=== PATIENT | male | born 1960 | race African-American/Black ===

== ENCOUNTER 2019-01-10 15:54 | Inpatient (IN) | payer OTHER ==
[~2019-01-10] VITALS: Ht 182.9 cm; Wt 95.3 kg
[2019-01-10] MEDS ORDERED: IV NORMAL SALINE 500ML BAG 500 ML IV ONE (16:30)
[2019-01-10 16:33] LABS: BASO % 0 % (0-3); EOS % 0 % (0-3); HEMATOCRIT 46.7 % (39.0-53.0); HEMOGLOBIN 15.8 g/dL (13.0-17.5); LYMPH # 0.3 x10^3/uL (1.0-4.8); LYMPH % 3 % (24-48); MEAN CORPUSCULAR HEMOGLOBIN 29 pg (25-35); MEAN CORPUSCULAR HGB CONC 34 g/dL (31-37); MEAN CORPUSCULAR VOLUME 85 fL (79-100); MONO # 0.2 x10^3/uL (0.0-1.1); MONO % 1 % (0-9); NEUT # 12.9 x10^3/uL (1.8-7.7); NEUT % 96 % (31-73); PLATELET COUNT 126 x10^3/uL (140-400); RED BLOOD COUNT 5.49 x10^6/uL (4.30-5.70); RED CELL DISTRIBUTION WIDTH 13.6 % (11.5-14.5); WHITE BLOOD COUNT 13.5 x10^3/uL (4.0-11.0)
--- NOTE | 2019-01-10 16:46 | RAD ---
EXAM: Chest, single view. HISTORY: Hypotension. COMPARISON: None. FINDINGS: A frontal view of the chest is obtained. There is no infiltrate, pleural effusion or pneumothorax. There is a prominent cardiac silhouette likely due to portable technique. IMPRESSION: No acute pulmonary finding. Electronically signed by: Inga Connors MD (01/10/2019 4:43 PM) [facility]
[2019-01-10 16:51] LABS: CALCIUM 9.1 mg/dL (8.5-10.1); CREATININE 2.3 mg/dL (0.7-1.3); GFR 35.4; POTASSIUM 4.3 mmol/L (3.5-5.1)
[2019-01-10 16:56] LABS: ALBUMIN 3.6 g/dL (3.4-5.0); TOTAL BILIRUBIN 2.3 mg/dL (0.2-1.0); TOTAL PROTEIN 7.1 g/dL (6.4-8.2)
[2019-01-10 16:58] LABS: % BANDS 39 % (0-9); % LYMPHS 2 % (24-48); % MONOS 2 % (0-10); % SEGS 57 % (35-66)
[2019-01-10 17:00] LABS: PLT ESTIMATE DECREASED (ADEQUATE); TOXIC GRANULATION SLIGHT; TOXIC VACUOLATION MOD
[2019-01-10] MEDS ORDERED: fentaNYL PF VIAL 100 MCG/2 ML VIAL IV ONE (17:00)
[2019-01-10] MEDS ORDERED: ONDANSETRON PF 4 MG/2 ML VIAL. IVP ONE (17:00)
--- NOTE | 2019-01-10 17:16 | PHYS DOC ---
Past Medical History Past Medical History: Diabetes-Type II (RACHELLE RODRIGUEZ APRN) Past Surgical History: Cholecystectomy Additional Past Surgical Histo: liver transplant, hernia (RACHELLE RODRIGUEZ APRN) Adult General Chief Complaint Chief Complaint: ABDOMINAL PAIN HPI HPI Patient is a 58 year old male who presents with multiple complaints. Here from [place], working, going home tomorrow Last night developed hyperglycemia, hx of DM II and liver transplant. states blood glucose in the night was 400. Chills and shaking, diffuse back upper back pain and central abdominal pain. Nausea, no vomiting, no diarrhea Arrived via EMS, BG 154. He is resting in no distress (RACHELLE RODRIGUEZ APRN) Review of Systems Review of Systems Constitutional: Denies fever . C/o chills [] Eyes: Denies change in visual acuity, redness, or eye pain [] HENT: Denies nasal congestion or sore throat [] Respiratory: Denies cough or shortness of breath [] Cardiovascular: No additional information not addressed in HPI [] GI: Denies vomiting, bloody stools or diarrhea []c/o central dull abdominal pain : Denies dysuria or hematuria [] Musculoskeletal: Denies joint pain []c/o back pain Integument: Denies rash or skin lesions [] Neurologic: Denies headache, focal weakness or sensory changes [] Endocrine: Denies polyuria or polydipsia [] All other systems were reviewed and found to be within normal limits, except as documented in this note. (RACHELLE RODRIGUEZ APRN) Current Medications Current Medications Current Medications Medications (Trade) Dose Ordered Sig/Sathish Start Time Stop Time Status Last Admin Dose Admin Acetaminophen (Tylenol) 1,000 mg 1X ONCE 01/10/19 18:15 01/10/19 18:19 DC 01/10/19 18:35 1,000 MG Fentanyl Citrate (Fentanyl 2ml Vial) 50 mcg PRN Q1HR PRN 01/10/19 19:45 01/11/19 19:44 Ondansetron HCl (Zofran) 4 mg PRN Q8HRS PRN 01/10/19 19:45 01/11/19 19:44 Piperacillin Sod/ Tazobactam Sod 4.5 gm/Sodium Chloride 100 ml @ 200 mls/hr 1X ONCE 01/10/19 18:15 01/10/19 18:44 DC 01/10/19 18:39 200 MLS/HR Sodium Chloride 1,000 ml @ 1,000 mls/hr 1X ONCE 01/10/19 18:30 01/10/19 19:29 DC 01/10/19 18:39 1,000 MLS/HR Vancomycin HCl (Vanco Per Pharmacy) 1 each PRN DAILY PRN 01/10/19 18:15 UNV Vancomycin HCl 1.5 gm/Sodium Chloride 500 ml @ 250 mls/hr 1X ONCE 01/10/19 18:30 01/10/19 20:29 01/10/19 18:43 250 MLS/HR (FLAKITO OLIVO MD) Allergies Allergies Allergies Coded Allergies Type Severity Reaction Last Updated Verified Sulfa (Sulfonamide Antibiotics) Allergy Intermediate hives 01/10/19 Yes (FLAKITO OLIVO MD) Physical Exam Physical Exam Constitutional: Well developed, well nourished, no acute distress, non-toxic appearance. [] HENT: Normocephalic, atraumatic, bilateral external ears normal, oropharynx moist, no oral exudates, nose normal. [] Eyes: PERRLA, EOMI, conjunctiva normal, no discharge. [] Neck: Normal range of motion, no tenderness, supple, no stridor. [] Cardiovascular:Heart rate regular rhythm, no murmur [] Lungs & Thorax: Bilateral breath sounds clear to auscultation [] Abdomen: Bowel sounds normal, soft, c/o diffuse TTP, no guarding or rebound, no masses, no pulsatile masses. [] Skin: Warm, dry, no erythema, no rash. [] Back: No tenderness, no CVA tenderness. [] Extremities: No tenderness, no cyanosis, no clubbing, ROM intact, no edema. [] Neurologic: Alert and oriented X 3, normal motor function, normal sensory function, no focal deficits noted. [] Psychologic: Affect normal, judgement normal, mood normal. [] (RACHELLE RODRIGUEZ APRN) Current Patient Data Vital Signs Vital Signs Date Time Temp Pulse Resp B/P (MAP) Pulse Ox O2 Delivery O2 Flow Rate FiO2 01/10/19 18:33 100 95/72 (80) 01/10/19 18:30 102.7 102.7 01/10/19 17:21 30 95 Room Air (FLAKITO OLIVO MD) Lab Values Laboratory Tests Test 01/10/19 16:05 01/10/19 18:35 White Blood Count 13.5 x10^3/uL (4.0-11.0) H Red Blood Count 5.49 x10^6/uL (4.30-5.70) Hemoglobin 15.8 g/dL (13.0-17.5) Hematocrit 46.7 % (39.0-53.0) Mean Corpuscular Volume 85 fL (79-100) Mean Corpuscular Hemoglobin 29 pg (25-35) Mean Corpuscular Hemoglobin Concent 34 g/dL (31-37) Red Cell Distribution Width 13.6 % (11.5-14.5) Platelet Count 126 x10^3/uL (140-400) L Neutrophils (%) (Auto) 96 % (31-73) H Lymphocytes (%) (Auto) 3 % (24-48) L Monocytes (%) (Auto) 1 % (0-9) Eosinophils (%) (Auto) 0 % (0-3) Basophils (%) (Auto) 0 % (0-3) Neutrophils # (Auto) 12.9 x10^3/uL (1.8-7.7) H Lymphocytes # (Auto) 0.3 x10^3/uL (1.0-4.8) L Monocytes # (Auto) 0.2 x10^3/uL (0.0-1.1) Eosinophils # (Auto) 0.0 x10^3/uL (0.0-0.7) Basophils # (Auto) 0.0 x10^3/uL (0.0-0.2) Segmented Neutrophils % 57 % (35-66) Band Neutrophils % 39 % (0-9) H Lymphocytes % 2 % (24-48) L Monocytes % 2 % (0-10) Toxic Granulation Slight Toxic Vacuolation Mod Platelet Estimate Decreased (ADEQUATE) Sodium Level 136 mmol/L (136-145) Potassium Level 4.3 mmol/L (3.5-5.1) Chloride Level 96 mmol/L (98-107) L Carbon Dioxide Level 31 mmol/L (21-32) Anion Gap 9 (6-14) Blood Urea Nitrogen 20 mg/dL (8-26) Creatinine 2.3 mg/dL (0.7-1.3) H Estimated GFR (Cockcroft-Gault) 35.4 BUN/Creatinine Ratio 9 (6-20) Glucose Level 229 mg/dL (70-99) H Lactic Acid Level 3.0 mmol/L (0.4-2.0) H Calcium Level 9.1 mg/dL (8.5-10.1) Total Bilirubin 2.3 mg/dL (0.2-1.0) H Aspartate Amino Transferase (AST) 103 U/L (15-37) H Alanine Aminotransferase (ALT) 114 U/L (16-63) H Alkaline Phosphatase 89 U/L (46-116) Troponin I Quantitative < 0.017 ng/mL (0.000-0.055) Total Protein 7.1 g/dL (6.4-8.2) Albumin 3.6 g/dL (3.4-5.0) Albumin/Globulin Ratio 1.0 (1.0-1.7) Lipase 32 U/L (73-393) L Urine Collection Type Unknown Urine Color [place] Urine Clarity Clear Urine pH 6.0 Urine Specific [place] 1.020 Urine Protein 100 mg/dL (NEG-TRACE) Urine Glucose (UA) 100 mg/dL (NEG) Urine Ketones (Stick) Trace mg/dL (NEG) Urine Blood Small (NEG) Urine Nitrite Negative (NEG) Urine Bilirubin Small (NEG) Urine Urobilinogen Dipstick 1.0 mg/dL (0.2 mg/dL) Urine Leukocyte Esterase Trace (NEG) Urine RBC 3-5 /HPF (0-2) Urine WBC 1-4 /HPF (0-4) Urine Squamous Epithelial Cells Occ /LPF Urine Bacteria Few /HPF (0-FEW) Urine Hyaline Casts Many /HPF Urine Mucus Marked /LPF Laboratory Tests 01/10/19 16:05 Laboratory Tests 01/10/19 16:05 (FLAKITO OLIVO MD) EKG EKG 1613: rate [address], [address] changes, interp by DR Physician (RACHELLE RODRIGUEZ APRN) Radiology/Procedures Radiology/Procedures []IMAGING REPORT Signed PATIENT: ERIC REYES ACCOUNT: [id number] : 1960 LOCATION: ER AGE: 58 SEX: M EXAM STATUS: REG ER ORD. PHYSICIAN: RACHELLE RODRIGUEZ APRN REASON: hypotensive PROCEDURE: CHEST AP ONLY EXAM: Chest, single view. HISTORY: Hypotension. COMPARISON: None. FINDINGS: A frontal view of the chest is obtained. There is no infiltrate, pleural effusion or pneumothorax. There is a prominent cardiac silhouette likely due to portable technique. IMPRESSION: No acute pulmonary finding. Electronically signed by: Sathya Arndt MD (01/10/2019 4:43 PM) [place] [id number] DICTATED and SIGNED BY: SATHYA ARNDT MD DATE: 01/10/19 1643 (RACHELLE RODRIGUEZ APRN) Impressions: Abdominal pain, chills, hypotension (RACHELLE RODRIGUEZ APRN) Course & Med Decision Making Course & Med Decision Making Pertinent Labs and Imaging studies reviewed. (See chart for details) []Patient here for multiple complaints, BG 154 Hypotension on arrival, No CP or SOB reports dull abdominal pain, nausea, upper back pain, chills. No back pain on arrival After initial evaluation developed chills, chills and shaking, caused upper back pain. 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 Lactic acid 3.0, IV fluids �1 L provided. Blood cultures obtained, vancomycin per pharmacy dosing, Zosyn 4.5 g IV �1. Awaiting CT scan, we'll plan for admission given sepsis of unknown etiology. Discussed admission with Dr. Kauffman. He requests infectious disease consultation. CT without evidence of acute process. ID consultation placed (FLAKITO OLIVO MD) Dragon Disclaimer Dragon Disclaimer This electronic medical record was generated, in whole or in part, using a voice recognition dictation system. (RACHELLE RODRIGUEZ APRN) Date and Time of Reassessment Date: Jan 10, 2019 Time: 19:51 (FLAKITO OLIVO MD) Fluid Challenge Is the fluid challenge complet: No IBW Target Volume Used: No BMI > 30: No (FLAKITO OLIVO MD) Vital Signs Vital Signs: Vital Signs Date Time Temp Pulse Resp B/P (MAP) Pulse Ox O2 Delivery O2 Flow Rate FiO2 01/10/19 18:33 100 95/72 (80) 01/10/19 18:30 102.7 102.7 01/10/19 17:21 30 95 Room Air (FLAKITO OLIVO MD) Temperature Source: Oral (FLAKITO OLIVO MD) Respirations Respiratory Effort: Normal Respiratory Pattern: Normal (FLAKITO OLIVO MD) Cardiovascular Pulse Rhythm: Regular Heart: Nml rate, reg. rhythm (FLAKITO OLIVO MD) Lung Sounds Breath Sounds: Diminished (FLAKITO OLIVO MD) Capillary Refil Capillary Refill: Rt Hand < 3 seconds (FLAKITO OLIVO MD) Peripheral Pulse Pulse Location: Monitor Pulse Strength: Normal (2+) Pulse Assessment Method: Monitor (FLAKITO OLIVO MD) Integumentary Skin: Warm, Dry Skin Moisture: Dry (FLAKITO OLIVO MD) Departure Departure Impression: Primary Impression: Severe sepsis Additional Impressions: MARK (acute kidney injury) Hyperglycemia due to type 2 diabetes mellitus Disposition: ADMITTED INPATIENT Admitting Physician: HIMLissy (FLAKITO OLIVO MD) Condition: STABLE Referrals: NO PCP (PCP) Problem Qualifiers Additional Impressions: Hyperglycemia due to type 2 diabetes mellitus 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
[2019-01-10] MEDS ORDERED: VANCOMYCIN PER PHARMACY MC PRN (18:15)
[2019-01-10] MEDS ORDERED: ACETAMINOPHEN 500 MG TABLET PO ONE (18:15)
[2019-01-10] MEDS ORDERED: PIPERACILLIN/TAZOBACTAM 4.5 GM in IV NORMAL SALINE 100ML 100 ML IV ONE (18:15)
[2019-01-10] MEDS ORDERED: VANCOMYCIN 1.5 GM in IV NORMAL SALINE 500ML BAG 500 ML IV ONE (18:30)
[2019-01-10] MEDS ORDERED: IV NORMAL SALINE 1000ML BAG 1,000 ML IV ONE (18:30)
[2019-01-10 18:57] LABS: BILIRUBIN,URINE SMALL (NEG); CLARITY,URINE CLEAR; COLOR,URINE ORANGE; NITRITE,URINE NEGATIVE (NEG); PROTEIN,URINE 100 mg/dL (NEG-TRACE)
[2019-01-10 19:04] LABS: BACTERIA,URINE FEW /HPF (0-FEW); HYALINE CASTS, URINE MANY /HPF; SQUAMOUS EPITHELIAL CELL,UR OCC /LPF
--- NOTE | 2019-01-10 19:31 | RAD ---
CT chest abdomen and pelvis without contrast: History: Pain status post fall Axial helical images of the chest, abdomen and pelvis were obtained without IV contrast. Comparison: none Findings: There is no mediastinal lymphadenopathy or hematoma. There is no hilar lymphadenopathy. Patchy opacities in the lung bases bilaterally is likely discoid atelectasis. Impression: No acute findings. End Impression CT SCAN OF THE ABDOMEN without IV CONTRAST. Findings: Liver: Unremarkable Spleen: Unremarkable Pancreas: Unremarkable Adrenal Glands: Unremarkable Kidneys: Small parapelvic cyst on the left Evaluation of stomach and bowel is limited without oral contrast. Evaluation of solid organs is limited without IV contrast. There is no mass or lymphadenopathy. There is no free air. There is no free fluid. Impression: No acute findings. End Impression CT of pelvis without contrast: There is no lymphadenopathy or free fluid. The bladder is collapsed and not well evaluated. There is no pericolonic inflammation. Impression: No acute findings. End impression PQRS Compliance Statement: One or more of the following individualized dose reduction techniques were utilized for this examination: 1. Automated exposure control 2. Adjustment of the mA and/or kV according to patient size 3. Use of iterative reconstruction technique Electronically signed by: Byron Florentino III, MD (01/10/2019 7:28 PM) [facility]
[2019-01-10] MEDS ORDERED: ONDANSETRON PF 4 MG/2 ML VIAL. IV PRN (19:45)
[2019-01-10] MEDS ORDERED: fentaNYL PF VIAL 100 MCG/2 ML VIAL IV PRN (19:45)
--- NOTE | 2019-01-10 20:12 | NUR ---
Pharmacy Vancomycin Dosing Note S: Consulted to monitor and dose vancomycin started 01/10/19. O: ERIC REYES is a 58 year old M with sepsis. Other Antibiotics: ZOSYN 4.5G IV X 1 DOSE IN ER LABS: Last BUN: 30 Last Creatinine: 2.3 Creatinine Clearance: 42 mL/min Last WBC: 13.5 Tmax (past 24 hours): 102.7 Microbiology: BLOOD/URINE CX PENDING I/O: 600/225 A: Patient requires vancomycin for sepsis, goal trough 15-20 mcg/ml. Patient's SCr is elevated at 2.3 with an eCrCl of 42 ml/min. Due to MARK will not give him a vancomycin loading dose, monitor renal function closely: P: 1. Initiate Vancomycin 1500 mg IV q24h 2. Follow up Trough level on 01/12/19 at 1730 3. Pharmacy will continue to monitor, follow and adjust therapy as needed. KAREN HAQ [facility], 01/10/192011
[2019-01-10 20:45] VITALS: BP 96/56
[2019-01-10] MEDS ORDERED: ZOLP10TA4 PO (22:52)
[2019-01-10] MEDS ORDERED: MYCO500T PO (22:52)
[2019-01-10] MEDS ORDERED: ALPR0.5T6 PO (22:52)
[2019-01-10] MEDS ORDERED: AMLO10TA8 PO (22:52)
[2019-01-10] MEDS ORDERED: INSU100V6 SQ (22:52)
[2019-01-10] MEDS ORDERED: TACR1CAP4 PO ×2 (22:52)
[2019-01-10] MEDS ORDERED: ASPI-171 PO (22:52)
[2019-01-10] MEDS ORDERED: INSU100V13 SQ (22:52)
[2019-01-10] MEDS ORDERED: MULT1TAB52 PO (22:55)
[2019-01-10 23:00] VITALS: BP 98/53
[2019-01-10] MEDS ORDERED: quiNINE 324 MG CAPSULE. PO PRN (23:15)
[2019-01-10] MEDS ORDERED: DEXTROSE 50% 25 GM / 50ML DISP.SYRIN. IV PRN (23:45)
[2019-01-10] MEDS ORDERED: ZOLPIDEM 5 MG TABLET. PO PRN (23:45)
[2019-01-10] MEDS ORDERED: ALPRAZolam 0.5 MG TABLET PO PRN (23:45)
--- NOTE | 2019-01-11 00:14 | HP ---
ADMIT DATE: 01/10/2019 CHIEF COMPLAINT: Chills, shakes, abdominal pain, nausea, elevated glucose. HISTORY OF PRESENT ILLNESS: This patient is a pleasant 58-year-old male who has a history of a liver transplant. He presented with the above chief complaints. He has been having chills and fevers and weakness occurring for a day or so. When we melquiades his labs, we noted that he is septic with a creatinine of 2.3, lactic acid of 3, and a white count of 13. He was also hyperglycemic into the 400s. I discussed the case with ER physician. We are placing the patient on IV antibiotics and consulting Infectious Disease. PAST MEDICAL HISTORY: 1. Liver transplant. 2. Diabetes. 3. Hypertension. 4. Hyperlipidemia. ALLERGIES: None. FAMILY HISTORY: Diabetes. SOCIAL HISTORY: He does not drink, smoke or take drugs. 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 He has been in [place]. MEDICATIONS: Reviewed. Please refer to the MRAD. REVIEW OF SYSTEMS: GENERAL: No history of weight change, weakness or fevers. SKIN: No bruising, hair changes or rashes. EYES: No blurred, double or loss of vision. NOSE AND THROAT: No history of nosebleeds, hoarseness or sore throat. HEART: No history of palpitations, chest pain or shortness of breath on exertion. LUNGS: Denies cough, hemoptysis, wheezing or shortness of breath. GASTROINTESTINAL: Denies changes in appetite, nausea, vomiting, diarrhea or constipation. GENITOURINARY: No history of frequency, urgency, hesitancy or nocturia. NEUROLOGIC: Denies history of numbness, tingling, tremor or weakness. PSYCHIATRIC: No history of panic, anxiety or depression. ENDOCRINE: No history of heat or cold intolerance, polyuria or polydipsia. EXTREMITIES: Denies muscle weakness, joint pain, pain on walking or stiffness. PHYSICAL EXAMINATION: VITALS: Within normal limits and are stable. GENERAL: No apparent distress. Alert and oriented. HEENT: Head is normocephalic, atraumatic, pupils were equally round and reactive to light and accommodation. NECK: Supple, no JVD, no thyromegaly was noted. LUNGS: Clear to auscultation in all lung waller without rhonchi or wheezing. HEART: RRR, S1, S2 present. Peripheral pulses intact, no obvious murmurs were noted. ABDOMEN: Soft, nontender. Positive bowel sounds no organomegaly, normal bowel sounds. EXTREMITIES: Without any cyanosis, clubbing, or edema. Pedal pulses intact, Homans sign is negative. NEUROLOGIC: Normal speech, normal tone. A & O x3, moves all extremities, no obvious focal deficits. PSYCHIATRIC: Normal affect, normal mood. Stable. SKIN: No ulcerations or rashes, good skin turgor, no jaundice. VASCULAR: Good capillary refill, neurovascular bundle appears to be intact. ASSESSMENT AND PLAN: Sepsis. The patient will be admitted. We will start IV antibiotics, consult Infectious Disease. PT, OT, home meds, DVT prophylaxis. Full code. BREEZY KHALIL DO DR: BELL/anisha JOB#: [id number] / [id number]
[2019-01-11 03:00] VITALS: BP 101/67
[2019-01-11] MEDS: TACROLIMUS 0.5 MG CAPSULE PO SCH ×3 (05:09→21:54)
[2019-01-11 05:51] LABS: BASO % 0 % (0-3); EOS % 0 % (0-3); HEMATOCRIT 41.6 % (39.0-53.0); HEMOGLOBIN 14.2 g/dL (13.0-17.5); LYMPH # 0.3 x10^3/uL (1.0-4.8); LYMPH % 4 % (24-48); MEAN CORPUSCULAR HEMOGLOBIN 29 pg (25-35); MEAN CORPUSCULAR HGB CONC 34 g/dL (31-37); MEAN CORPUSCULAR VOLUME 84 fL (79-100); MONO # 0.6 x10^3/uL (0.0-1.1); MONO % 7 % (0-9); NEUT # 7.5 x10^3/uL (1.8-7.7); NEUT % 88 % (31-73); PLATELET COUNT 84 x10^3/uL (140-400); RED BLOOD COUNT 4.95 x10^6/uL (4.30-5.70); RED CELL DISTRIBUTION WIDTH 13.8 % (11.5-14.5); WHITE BLOOD COUNT 8.5 x10^3/uL (4.0-11.0)
[2019-01-11 06:16] LABS: ALBUMIN 2.7 g/dL (3.4-5.0); ALBUMIN/GLOBULIN RATIO 0.9 (1.0-1.7); CREATININE 2.3 mg/dL (0.7-1.3); GFR 35.4; POTASSIUM 4.5 mmol/L (3.5-5.1); TOTAL BILIRUBIN 3.3 mg/dL (0.2-1.0); TOTAL PROTEIN 5.8 g/dL (6.4-8.2)
--- NOTE | 2019-01-11 06:57 | EKG ---
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
[2019-01-11 07:00] VITALS: BP 123/76
[2019-01-11] MEDS ORDERED: INSULIN REGULAR 100 UNIT/ML 3ML VIAL. SQ SCH (07:30)
[2019-01-11] MEDS ORDERED: PIP/TAZO PER PHARMACY MC PRN (08:00)
[2019-01-11] MEDS ORDERED: PIPERACILLIN/TAZOBACTAM 3.375 GM in IV NORMAL SALINE 50ML 50 ML IV SCH (08:30)
[2019-01-11] MEDS: MYCOPHENOLATE MOFETIL 250 MG CAPSULE. PO SCH (08:46)
[2019-01-11] MEDS: amLODIPine BESYLATE 10 MG TABLET PO SCH (08:46)
[2019-01-11] MEDS: MULTIVITAMIN with MINERAL TABLET. PO SCH (08:47)
[2019-01-11] MEDS: ASPIRIN ENTERIC COATED 81 MG TABLET.DR. PO SCH (08:47)
--- NOTE | 2019-01-11 08:54 | PDOC ---
Infectious Disease Note Vital Sign Vital Signs Vital Signs Date Time Temp Pulse Resp B/P (MAP) Pulse Ox O2 Delivery O2 Flow Rate FiO2 01/11/19 03:00 98.5 89 24 101/67 (78) Room Air 91.0 98.5 01/10/19 20:40 97 Labs Lab Laboratory Tests Test 01/10/19 16:05 01/10/19 18:35 01/10/19 20:43 01/11/19 05:29 White Blood Count 13.5 x10^3/uL (4.0-11.0) 8.5 x10^3/uL (4.0-11.0) Red Blood Count 5.49 x10^6/uL (4.30-5.70) 4.95 x10^6/uL (4.30-5.70) Hemoglobin 15.8 g/dL (13.0-17.5) 14.2 g/dL (13.0-17.5) Hematocrit 46.7 % (39.0-53.0) 41.6 % (39.0-53.0) Mean Corpuscular Volume 85 fL (79-100) 84 fL (79-100) Mean Corpuscular Hemoglobin 29 pg (25-35) 29 pg (25-35) Mean Corpuscular Hemoglobin Concent 34 g/dL (31-37) 34 g/dL (31-37) Red Cell Distribution Width 13.6 % (11.5-14.5) 13.8 % (11.5-14.5) Platelet Count 126 x10^3/uL (140-400) 84 x10^3/uL (140-400) Neutrophils (%) (Auto) 96 % (31-73) 88 % (31-73) Lymphocytes (%) (Auto) 3 % (24-48) 4 % (24-48) Monocytes (%) (Auto) 1 % (0-9) 7 % (0-9) Eosinophils (%) (Auto) 0 % (0-3) 0 % (0-3) Basophils (%) (Auto) 0 % (0-3) 0 % (0-3) Neutrophils # (Auto) 12.9 x10^3/uL (1.8-7.7) 7.5 x10^3/uL (1.8-7.7) Lymphocytes # (Auto) 0.3 x10^3/uL (1.0-4.8) 0.3 x10^3/uL (1.0-4.8) Monocytes # (Auto) 0.2 x10^3/uL (0.0-1.1) 0.6 x10^3/uL (0.0-1.1) Eosinophils # (Auto) 0.0 x10^3/uL (0.0-0.7) 0.0 x10^3/uL (0.0-0.7) Basophils # (Auto) 0.0 x10^3/uL (0.0-0.2) 0.0 x10^3/uL (0.0-0.2) Segmented Neutrophils % 57 % (35-66) Band Neutrophils % 39 % (0-9) Lymphocytes % 2 % (24-48) Monocytes % 2 % (0-10) Toxic Granulation Slight Toxic Vacuolation Mod Platelet Estimate Decreased (ADEQUATE) Sodium Level 136 mmol/L (136-145) 135 mmol/L (136-145) Potassium Level 4.3 mmol/L (3.5-5.1) 4.5 mmol/L (3.5-5.1) Chloride Level 96 mmol/L (98-107) 101 mmol/L (98-107) Carbon Dioxide Level 31 mmol/L (21-32) 26 mmol/L (21-32) Anion Gap 9 (6-14) 8 (6-14) Blood Urea Nitrogen 20 mg/dL (8-26) 29 mg/dL (8-26) Creatinine 2.3 mg/dL (0.7-1.3) 2.3 mg/dL (0.7-1.3) Estimated GFR (Cockcroft-Gault) 35.4 35.4 BUN/Creatinine Ratio 9 (6-20) 13 (6-20) Glucose Level 229 mg/dL (70-99) 231 mg/dL (70-99) Lactic Acid Level 3.0 mmol/L (0.4-2.0) 1.8 mmol/L (0.4-2.0) Calcium Level 9.1 mg/dL (8.5-10.1) 8.0 mg/dL (8.5-10.1) Total Bilirubin 2.3 mg/dL (0.2-1.0) 3.3 mg/dL (0.2-1.0) Aspartate Amino Transf (AST/SGOT) 103 U/L (15-37) 390 U/L (15-37) Alanine Aminotransferase (ALT/SGPT) 114 U/L (16-63) 398 U/L (16-63) Alkaline Phosphatase 89 U/L (46-116) 82 U/L (46-116) Troponin I Quantitative < 0.017 ng/mL (0.000-0.055) Total Protein 7.1 g/dL (6.4-8.2) 5.8 g/dL (6.4-8.2) Albumin 3.6 g/dL (3.4-5.0) 2.7 g/dL (3.4-5.0) Albumin/Globulin Ratio 1.0 (1.0-1.7) 0.9 (1.0-1.7) Lipase 32 U/L (73-393) Urine Collection Type Unknown Urine Color [place] Urine Clarity Clear Urine pH 6.0 Urine Specific [place] 1.020 Urine Protein 100 mg/dL (NEG-TRACE) Urine Glucose (UA) 100 mg/dL (NEG) Urine Ketones (Stick) Trace mg/dL (NEG) Urine Blood Small (NEG) Urine Nitrite Negative (NEG) Urine Bilirubin Small (NEG) Urine Urobilinogen Dipstick 1.0 mg/dL (0.2 mg/dL) Urine Leukocyte Esterase Trace (NEG) Urine RBC 3-5 /HPF (0-2) Urine WBC 1-4 /HPF (0-4) Urine Squamous Epithelial Cells Occ /LPF Urine Bacteria Few /HPF (0-FEW) Urine Hyaline Casts Many /HPF Urine Mucus Marked /LPF Micro BLOOD CULTURE Final GRAM NEGATIVE RODS IN 1 OF 4 BOTTLES(ANAEROBIC);REPRESENTING 2 SETS DRAWN. THE RESULT WAS CALLED TO SOURAV GOLD ON 01/11/19 AT 0742 BY Olamide HENSLEY. 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 D/w nursing Thank you [id number] D/w Attending Co-Sign Attending Co-Sign The patient was seen and interviewed as well as examined at the bedside. The chart was reviewed. The case was discussed. Agree with the plan of care. ROHAN CALDERON APRN Jan 11, 2019 08:54 OLVIN MENDIOLA MD Jan 11, 2019 17:30
[2019-01-11] MEDS: INSULIN LISPRO 300 UNITS/3 ML VIAL. SQ SCH ×3 (09:04→17:34)
--- NOTE | 2019-01-11 09:09 | CONS ---
DATE OF CONSULTATION: 01/11/2019 REFERRING PHYSICIAN: Dr. Rodriguez. REASON FOR CONSULTATION: Severe sepsis, status post liver transplant. HISTORY OF PRESENT ILLNESS: This patient is a 58-year-old -[place] male who had a liver transplant in 2012 and is on immunosuppressive therapy consisting of Prograf and CellCept. He was in his usual state of health when after sitting outside relaxing, he developed chills, shakes, leg cramps and sweats. He had no energy. He took some Tylenol and Ambien to help sleep, but symptoms persisted. He arrived in the ER with a fever of 102.7. He became hypotensive, responsive to IV fluids. He was found to have a WBC count of 13,500, segs 57%, bands 39%. Lactic acid of 3.0. Imaging of the chest showed patchy opacities in the lung bases bilaterally, likely discoid atelectasis. Abdominal/pelvis CT showed no acute findings. A urinalysis showed few wbc's, leukocyte esterase and bacteria. He was dosed with vancomycin and Zosyn in the ER. Blood cultures have now returned with gram-negative rods in 1 of 4 bottles. The patient says he is feeling better, but has some muscle soreness due to the shakes. He had nausea earlier without vomiting, diarrhea or cramps. He woke up this morning with a cough. Denies shortness of air, chest discomfort or sinus congestion. Denies dysuria, frequency or urgency. 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 About 2 months ago, he developed a sore throat and swollen uvula for which he was treated with Zithromax. 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 PAST MEDICAL HISTORY: Autoimmune disorder, status post liver transplant in 2013 at [place], [place]; ulcerative colitis, recently diagnosed; diabetes type 2; eczema; anxiety; hyperlipidemia; hypertension. PAST SURGICAL HISTORY: Liver transplant in 2012 at [place], [place]; cholecystectomy; hernia repair; left shoulder cuff repair. SOCIAL HISTORY: The patient lives in [place]. He is a [place] . 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 He travels throughout the world. He runs about 2 miles a day. Nonsmoker. FAMILY HISTORY: Diabetes. ALLERGIES: SULFA CAUSING HIVES. MEDICATIONS: Vancomycin, one-time dose of Zosyn in ER, CellCept, Prograf, Tylenol, Xanax, Norvasc, aspirin, fentanyl, insulin, multivitamin, Zofran, quinine, Ambien. REVIEW OF SYSTEMS: Per HPI, otherwise all other review of systems are negative. PHYSICAL EXAMINATION: VITAL SIGNS: Temperature is 98.5, T-max 102.7, blood pressure 101/67, heart rate 89, respiratory rate 24, pulse oximetry 97% on room air. BMI 29. GENERAL: The patient is propped up in bed, alert, relaxed appearance. HEENT: Pupils equally round and reactive. Oropharynx pink and moist. No lesions. NECK: Supple. LUNGS: Clear to auscultation. HEART: S1, S2. ABDOMEN: Soft and nontender with bowel sounds present. EXTREMITIES: No gross edema or cyanosis. SKIN: Warm to touch. No signs of rash. NEUROLOGIC: Alert and oriented x 3. LABORATORY DATA: Today's WBC 8.5 from 13.5 on admission, hemoglobin 14.2, platelets 84,000 from 126,000, segs 57%, bands 39%. Sodium 135, potassium 4.5, creatinine 2.3, glucose 231, lactic acid 1.8 from 3.0, total bilirubin 3.3, AST 390, ALT 398, albumin 2.7, lipase 32. Urinalysis per HPI. Blood cultures show gram-negative rods in 1 of 4 bottles. Urine culture pending. IMAGING: Per HPI. IMPRESSION: 1. Gram-negative dipesh sepsis with hypotension, present on admission, 01/10. 2. Immunosuppression secondary to liver transplant. 3. Lactic acidosis. 4. SULFA ALLERGY CAUSING HIVES. 5. Acute kidney injury. 6. Elevated liver function tests. 7. Ulcerative colitis, status post colonoscopy, now on Lialda and Uceris. 8. Diabetes type 2. PLAN: Continue Zosyn, dose adjusted for renal function. Discontinue the vancomycin. Further antibiotic changes pending culture results. Nephrology has been consulted for MARK. Labs have been ordered for the morning. We will continue to follow along. Thank you, Dr. Rodriguez, for asking us to participate in this patient's care. Should you have further questions or concerns, please call. OLVIN MENDIOLA MD DR: Lorna JOB#: [id number] / [id number]
[2019-01-11 11:00] VITALS: BP 108/62
--- NOTE | 2019-01-11 11:26 | PDOC ---
[facility] PROGRESS NOTE Chief Complaint Chief Complaint Sepsis Immunosuppression secondary to liver transplant History of Present Illness History of Present Illness 01/11/19 Pt was seen and examined at bedside Was polite and in good spirits Had already been seen by ID Monitors creatinine due to his acute kidney injury DW RN Charts and labs reviewed Vitals/I&O Vitals/I&O: Vital Signs Date Time Temp Pulse Resp B/P (MAP) Pulse Ox O2 Delivery O2 Flow Rate FiO2 01/11/19 11:00 98.3 86 18 108/62 (77) 96 Room Air 98.3 01/11/19 08:00 91.0 I & O 01/10/19 01/10/19 01/11/19 14:59 22:59 06:59 Intake Total 660 ml 120 ml Output Total 225 ml 0 ml Balance 435 ml 120 ml Physical Exam General: Alert, Oriented X3, Cooperative, No acute distress Heart: Regular rate Abdomen: Normal bowel sounds Extremities: No clubbing, No cyanosis, Normal pulses Skin: No rashes, No breakdown, No significant lesion Labs Labs: Laboratory Tests Test 01/10/19 16:05 01/10/19 18:35 01/10/19 20:43 01/11/19 05:29 White Blood Count 13.5 x10^3/uL (4.0-11.0) 8.5 x10^3/uL (4.0-11.0) Red Blood Count 5.49 x10^6/uL (4.30-5.70) 4.95 x10^6/uL (4.30-5.70) Hemoglobin 15.8 g/dL (13.0-17.5) 14.2 g/dL (13.0-17.5) Hematocrit 46.7 % (39.0-53.0) 41.6 % (39.0-53.0) Mean Corpuscular Volume 85 fL (79-100) 84 fL (79-100) Mean Corpuscular Hemoglobin 29 pg (25-35) 29 pg (25-35) Mean Corpuscular Hemoglobin Concent 34 g/dL (31-37) 34 g/dL (31-37) Red Cell Distribution Width 13.6 % (11.5-14.5) 13.8 % (11.5-14.5) Platelet Count 126 x10^3/uL (140-400) 84 x10^3/uL (140-400) Neutrophils (%) (Auto) 96 % (31-73) 88 % (31-73) Lymphocytes (%) (Auto) 3 % (24-48) 4 % (24-48) Monocytes (%) (Auto) 1 % (0-9) 7 % (0-9) Eosinophils (%) (Auto) 0 % (0-3) 0 % (0-3) Basophils (%) (Auto) 0 % (0-3) 0 % (0-3) Neutrophils # (Auto) 12.9 x10^3/uL (1.8-7.7) 7.5 x10^3/uL (1.8-7.7) Lymphocytes # (Auto) 0.3 x10^3/uL (1.0-4.8) 0.3 x10^3/uL (1.0-4.8) Monocytes # (Auto) 0.2 x10^3/uL (0.0-1.1) 0.6 x10^3/uL (0.0-1.1) Eosinophils # (Auto) 0.0 x10^3/uL (0.0-0.7) 0.0 x10^3/uL (0.0-0.7) Basophils # (Auto) 0.0 x10^3/uL (0.0-0.2) 0.0 x10^3/uL (0.0-0.2) Segmented Neutrophils % 57 % (35-66) Band Neutrophils % 39 % (0-9) Lymphocytes % 2 % (24-48) Monocytes % 2 % (0-10) Toxic Granulation Slight Toxic Vacuolation Mod Platelet Estimate Decreased (ADEQUATE) Sodium Level 136 mmol/L (136-145) 135 mmol/L (136-145) Potassium Level 4.3 mmol/L (3.5-5.1) 4.5 mmol/L (3.5-5.1) Chloride Level 96 mmol/L (98-107) 101 mmol/L (98-107) Carbon Dioxide Level 31 mmol/L (21-32) 26 mmol/L (21-32) Anion Gap 9 (6-14) 8 (6-14) Blood Urea Nitrogen 20 mg/dL (8-26) 29 mg/dL (8-26) Creatinine 2.3 mg/dL (0.7-1.3) 2.3 mg/dL (0.7-1.3) Estimated GFR (Cockcroft-Gault) 35.4 35.4 BUN/Creatinine Ratio 9 (6-20) 13 (6-20) Glucose Level 229 mg/dL (70-99) 231 mg/dL (70-99) Lactic Acid Level 3.0 mmol/L (0.4-2.0) 1.8 mmol/L (0.4-2.0) Calcium Level 9.1 mg/dL (8.5-10.1) 8.0 mg/dL (8.5-10.1) Total Bilirubin 2.3 mg/dL (0.2-1.0) 3.3 mg/dL (0.2-1.0) Aspartate Amino Transf (AST/SGOT) 103 U/L (15-37) 390 U/L (15-37) Alanine Aminotransferase (ALT/SGPT) 114 U/L (16-63) 398 U/L (16-63) Alkaline Phosphatase 89 U/L (46-116) 82 U/L (46-116) Troponin I Quantitative < 0.017 ng/mL (0.000-0.055) Total Protein 7.1 g/dL (6.4-8.2) 5.8 g/dL (6.4-8.2) Albumin 3.6 g/dL (3.4-5.0) 2.7 g/dL (3.4-5.0) Albumin/Globulin Ratio 1.0 (1.0-1.7) 0.9 (1.0-1.7) Lipase 32 U/L (73-393) Urine Collection Type Unknown Urine Color [place] Urine Clarity Clear Urine pH 6.0 Urine Specific [place] 1.020 Urine Protein 100 mg/dL (NEG-TRACE) Urine Glucose (UA) 100 mg/dL (NEG) Urine Ketones (Stick) Trace mg/dL (NEG) Urine Blood Small (NEG) Urine Nitrite Negative (NEG) Urine Bilirubin Small (NEG) Urine Urobilinogen Dipstick 1.0 mg/dL (0.2 mg/dL) Urine Leukocyte Esterase Trace (NEG) Urine RBC 3-5 /HPF (0-2) Urine WBC 1-4 /HPF (0-4) Urine Squamous Epithelial Cells Occ /LPF Urine Bacteria Few /HPF (0-FEW) Urine Hyaline Casts Many /HPF Urine Mucus Marked /LPF Test 01/11/19 08:20 Glucose (Fingerstick) 206 mg/dL (70-99) Review of Systems Review of Systems: No nausea, no vomiting No chest pain, no palpitations Assessment and Plan Assessmemt and Plan Problems Medical Problems: (1) Abdominal pain Status: Acute (2) MARK (acute kidney injury) Status: Acute (3) Hyperglycemia due to type 2 diabetes mellitus Status: Acute (4) Lactic acid acidosis Status: Acute (5) Renal insufficiency Status: Acute (6) Severe sepsis Status: Acute Assessment GN sepsis Immunosuppression secondary to liver transplant Lactic acidosis MARK Diabetes mellitus Plan IV Zosyn D/C vancomycin per ID Consult nephrology Home meds DVT prophylaxis Trend Cr Full code Comment Review of Relevant I have reviewed the following items markell (where applicable) has been applied. Medications: Current Medications Medications (Trade) Dose Ordered Sig/Sathish Route PRN Reason Start Time Stop Time Status Last Admin Dose Admin Sodium Chloride 500 ml @ 500 mls/hr 1X ONCE IV 01/10/19 16:30 01/10/19 17:29 DC 01/10/19 16:29 Fentanyl Citrate (Fentanyl 2ml Vial) 25 mcg 1X ONCE IV 01/10/19 17:00 01/10/19 17:01 DC 01/10/19 17:21 Ondansetron HCl (Zofran) 4 mg 1X ONCE IVP 01/10/19 17:00 01/10/19 17:01 DC 01/10/19 17:20 Acetaminophen (Tylenol) 1,000 mg 1X ONCE PO 01/10/19 18:15 01/10/19 18:19 DC 01/10/19 18:35 Piperacillin Sod/ Tazobactam Sod 4.5 gm/Sodium Chloride 100 ml @ 200 mls/hr 1X ONCE IV 01/10/19 18:15 01/10/19 18:44 DC 01/10/19 18:39 Vancomycin HCl (Vanco Per Pharmacy) 1 each PRN DAILY PRN MC SEE COMMENTS 01/10/19 18:15 01/11/19 07:57 DC 01/10/19 20:10 Sodium Chloride 1,000 ml @ 1,000 mls/hr 1X ONCE IV 01/10/19 18:30 01/10/19 19:29 DC 01/10/19 18:39 Vancomycin HCl 1.5 gm/Sodium Chloride 500 ml @ 250 mls/hr 1X ONCE IV 01/10/19 18:30 01/10/19 20:29 DC 01/10/19 18:43 Quinine Sulfate (Qualaquin) 324 mg PRN Q8HRS PRN PO MUSCLE CRAMPS 01/10/19 23:15 01/10/19 23:37 Amlodipine Besylate (Norvasc) 10 mg DAILY PO 01/11/19 09:00 01/11/19 08:46 Aspirin (Ecotrin) 81 mg DAILYWBKFT PO 01/11/19 08:00 01/11/19 08:47 Tacrolimus (Prograf) 3 mg DAILY05 PO 01/11/19 05:00 01/11/19 06:09 DC 01/11/19 05:52 Multivitamins (Thera M Plus) 1 tab DAILY PO 01/11/19 09:00 01/11/19 08:47 Mycophenolate Mofetil (Cellcept) 500 mg DAILY PO 01/11/19 09:00 01/11/19 08:46 Insulin Human Lispro (HumaLOG) 0-9 UNITS TIDWMEALS SQ 01/11/19 08:00 01/11/19 09:04 BREEZY KHALIL III DO Jan 11, 2019 11:26
[2019-01-11] MEDS ORDERED: IV NORMAL SALINE 500ML BAG 500 ML IV ONE (12:00)
--- NOTE | 2019-01-11 12:19 | PDOC2 ---
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 He was in his usual state of health but developed chills, shakes, leg cramps and sweats and no energy. He took some Tylenol and Ambien to help sleep, but symptoms persisted. He arrived in the ER with a fever of 102.7. He became hypotensive, responsive to IV fluids. He was found to have a WBC count of 13,500 and Lactic acid of 3.0. Imaging chest showed patchy opacities in the lung bases bilaterally, likely discoid atelectasis. Abdominal/pelvis CT showed no acute findings. US with few wbc's,leukocyte esterase and bacteria. Blood cultures with gram-negative rods in 1 of 4 bottles. Pt states he is feeling better He had nausea earlier without vomiting, diarrhea or cramps. Denies shortness of air, or CP. Denies dysuria, frequency or urgency. 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 About 2 months ago, he developed a sore throat and swollen uvula for which he was treated with Zithromax.He was on cellcept 500 mg BID , decreased to 500 mg QD and Prograf to 3-2 from 4-2 last year as LFT's were stable His most recent LFT's in Nov was in 40's and Cr 1.8 in Sep(from 1.3 in July). He follows with Nephrology(Q year, hasnt seen her this year) and his Liver Tx provider (Q 6 months) in [place] Denies using any NSAID's . 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 PAST SURGICAL HISTORY: Liver transplant in 2012 at [place], [place]; cholecystectomy; hernia repair; left shoulder cuff repair. SOCIAL HISTORY: The patient lives in [place]. He is a [place] . 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 He travels throughout the world. He runs about 2 miles a day. Nonsmoker. Current Problem List Problem List Problems Medical Problems: (1) Abdominal pain Status: Acute (2) MARK (acute kidney injury) Status: Acute (3) Hyperglycemia due to type 2 diabetes mellitus Status: Acute (4) Lactic acid acidosis Status: Acute (5) Renal insufficiency Status: Acute (6) Severe sepsis Status: Acute Current Medications Current Medications Current Medications Sodium Chloride 500 ml @ 500 mls/hr 1X ONCE IV Last administered on 01/10/19 16:29; Start 01/10/19 at 16:30; Stop 01/10/19 at 17:29; Status DC Fentanyl Citrate (Fentanyl 2ml Vial) 25 mcg 1X ONCE IV Last administered on 17:21; Start 01/10/19 at 17:00; Stop 01/10/19 at 17:01; Status DC Ondansetron HCl (Zofran) 4 mg 1X ONCE IVP Last administered on 01/10/19 17:20; Start 01/10/19 at 17:00; Stop 01/10/19 at 17:01; Status DC Acetaminophen (Tylenol) 1,000 mg 1X ONCE PO Last administered on 01/10/19 18:35; Start 01/10/19 at 18:15; Stop 01/10/19 at 18:19; Status DC Piperacillin Sod/ Tazobactam Sod 4.5 gm/Sodium Chloride 100 ml @ 200 mls/hr 1X ONCE IV Last administered on 01/10/19 18:39; Start 01/10/19 at 18:15; Stop 01/10/19 at 18:44; Status DC Vancomycin HCl (Vanco Per Pharmacy) 1 each PRN DAILY PRN MC SEE COMMENTS Last administered on 01/10/19 20:10; Start 01/10/19 at 18:15; Stop 01/11/19 at 07:57; Status DC Sodium Chloride 1,000 ml @ 1,000 mls/hr 1X ONCE IV Last administered on 01/10/19 18:39; Start 01/10/19 at 18:30; Stop 01/10/19 at 19:29; Status DC Vancomycin HCl 1.5 gm/Sodium Chloride 500 ml @ 250 mls/hr 1X ONCE IV Last administered on 01/10/19at 18:43; Start 01/10/19 at 18:30; Stop 01/10/19 at 20:29; Status DC Ondansetron HCl (Zofran) 4 mg PRN Q8HRS PRN IV NAUSEA/VOMITING; Start 01/10/19 at 19:45; Stop 01/11/19 at 19:44 Fentanyl Citrate (Fentanyl 2ml Vial) 50 mcg PRN Q1HR PRN IV PAIN; Start 01/10/19 at 19:45; Stop 01/11/19 at 19:44 Vancomycin HCl 1.5 gm/Sodium Chloride 500 ml @ 250 mls/hr Q24H IV ; Start 01/11/19 at 18:00; Stop 01/11/19 at 07:57; Status DC Vancomycin HCl (Vancomycin Trough Level) 1 each 1X ONCE MC ; Start 01/12/19 at 17:30; Stop 01/12/19 at 17:31; Status Cancel Quinine Sulfate (Qualaquin) 324 mg PRN Q8HRS PRN PO MUSCLE CRAMPS Last administered on 01/10/19at 23:37; Start 01/10/19 at 23:15 Alprazolam (Xanax) 0.5 mg PRN Q6HRS PRN PO ANXIETY / AGITATION; Start 01/10/19 at 23:45 Amlodipine Besylate (Norvasc) 10 mg DAILY PO Last administered on 01/11/19at 08:46; Start 01/11/19 at 09:00 Aspirin (Ecotrin) 81 mg DAILYWBKFT PO Last administered on 01/11/19at 08:47; Start 01/11/19 at 08:00 Insulin Human Regular (HumuLIN R VIAL) 100 unit DAILYAC SQ ; Start 01/11/19 at 07:30; Status UNV Tacrolimus (Prograf) 2 mg DAILY16 PO ; Start 01/11/19 at 16:00 Tacrolimus (Prograf) 3 mg DAILY05 PO Last administered on 01/11/19at 05:52; Start 01/11/19 at 05:00; Stop 01/11/19 at 06:09; Status DC Non-Formulary Medication (Insulin Detemir (Levemir)) 32 unit HS SQ ; Start 01/11/19 at 21:00; Status UNV Multivitamins (Thera M Plus) 1 tab DAILY PO Last administered on 01/11/19at 08:47; Start 01/11/19 at 09:00 Mycophenolate Mofetil (Cellcept) 500 mg DAILY PO Last administered on 01/11/19at 08:46; Start 01/11/19 at 09:00 Zolpidem Tartrate (Ambien) 5 mg PRN QHS PRN PO INSOMNIA,MRX1 PRN; Start 01/10/19 at 23:45 Insulin Human Lispro (HumaLOG) 0-9 UNITS TIDWMEALS SQ Last administered on 01/11/19at 09:04; Start 01/11/19 at 08:00 Dextrose (Dextrose 50%-Water Syringe) 12.5 gm PRN Q15MIN PRN IV SEE COMMENTS; Start 01/10/19 at 23:45 Insulin Glargine (Lantus Syringe) 32 unit QHS SQ ; Start 01/11/19 at 21:00 Tacrolimus (Prograf) 3 mg DAILY08 PO ; Start 01/12/19 at 08:00 Piperacillin Sod/ Tazobactam Sod (Zosyn Per Pharmacy) 1 each PRN DAILY PRN MC SEE COMMENTS; Start 01/11/19 at 08:00; Stop 01/11/19 at 09:03; Status DC Piperacillin Sod/ Tazobactam Sod 3.375 gm/Sodium Chloride 50 ml @ 100 mls/hr Q6HRS IV ; Start 01/11/19 at 08:30; Stop 01/11/19 at 09:03; Status DC Piperacillin Sod/ Tazobactam Sod 2.25 gm/Sodium Chloride 50 ml @ 100 mls/hr Q8HRS IV ; Start 01/11/19 at 14:00 Active Scripts Active Reported Multivitamins (Multivitamin) 1 Each Tablet 1 Tab PO DAILY Alprazolam 0.5 Mg Tablet 0.5 Mg PO PRN Q6HRS PRN Humalog (Insulin Lispro) 100 Unit/1 Ml Vial 100 Unit SQ DAILYAC Levemir (Insulin Detemir) 100 Unit/1 Ml Vial 32 Unit SQ HS Amlodipine Besylate 10 Mg Tablet 10 Mg PO DAILY Lo-Dose Aspirin EC (Aspirin) 81 Mg Tablet.dr 81 Mg PO DAILY Zolpidem Tartrate 10 Mg Tablet 10 Mg PO PRN QHS PRN Prograf (Tacrolimus) 1 Mg Capsule 2 Cap PO DAILY16 Prograf (Tacrolimus) 1 Mg Capsule 3 Cap PO DAILY05 Cellcept (Mycophenolate Mofetil) 500 Mg Tablet 500 Mg PO DAILY Allergies Allergies: Coded Allergies: Sulfa (Sulfonamide Antibiotics) (Verified Allergy, Intermediate, hives, 01/10/19) ROS Review of System Per HPI Physical Exam Physical Exam GENERAL: NAD HEENT: Oropharynx pink and moist. No lesions. NECK: Supple. LUNGS: Clear to auscultation. HEART: S1, S2. ABDOMEN: Soft and nontender EXTREMITIES: No gross edema or cyanosis. SKIN: Warm to touch. No rash. NEUROLOGIC: Alert and oriented x 3. No [place] Vital Signs Vital Signs Date Time Temp Pulse Resp B/P (MAP) Pulse Ox O2 Delivery O2 Flow Rate FiO2 01/11/19 11:00 98.3 86 18 108/62 (77) 96 Room Air 98.3 01/11/19 08:00 91.0 Assessment & Plan MARK - suspect ATN due to sepsis /Hypotension Baseline Cr 1.2-1.3 (July) , most recent in September 1.8 UA with micr hematuria, and overt proteinuria Check CK , Ur pr/Cr , , IVF(regan, chelle RN), Supportive care, Strict I/O , Monitor daily labs Microscopic hematuria-(3-5 RBC's) pt reports chronic S/P Liver Tx in 2012 On Cellcept and Prograf Gram-negative dipesh sepsis with hypotension On Abx per ID, Vanc dced . Lactic acidosis. Elevated liver function tests- suspect sec to sepsis Normal LFT's in Nov Ulcerative colitis, status post colonoscopy, now on Lialda and Uceris since Nov 2018 Diabetes type 2- A1C improved to 7.2 from 8.4 Per Primary Thrombocytopenia - ? 2/2 Sepsis Unlikely due to Cellcept -- on low dose Discussed A/P with pt at great length, Labs Labs Laboratory Tests Test 01/10/19 16:05 01/10/19 18:35 01/10/19 20:43 01/11/19 05:29 White Blood Count 13.5 x10^3/uL (4.0-11.0) 8.5 x10^3/uL (4.0-11.0) Red Blood Count 5.49 x10^6/uL (4.30-5.70) 4.95 x10^6/uL (4.30-5.70) Hemoglobin 15.8 g/dL (13.0-17.5) 14.2 g/dL (13.0-17.5) Hematocrit 46.7 % (39.0-53.0) 41.6 % (39.0-53.0) Mean Corpuscular Volume 85 fL (79-100) 84 fL (79-100) Mean Corpuscular Hemoglobin 29 pg (25-35) 29 pg (25-35) Mean Corpuscular Hemoglobin Concent 34 g/dL (31-37) 34 g/dL (31-37) Red Cell Distribution Width 13.6 % (11.5-14.5) 13.8 % (11.5-14.5) Platelet Count 126 x10^3/uL (140-400) 84 x10^3/uL (140-400) Neutrophils (%) (Auto) 96 % (31-73) 88 % (31-73) Lymphocytes (%) (Auto) 3 % (24-48) 4 % (24-48) Monocytes (%) (Auto) 1 % (0-9) 7 % (0-9) Eosinophils (%) (Auto) 0 % (0-3) 0 % (0-3) Basophils (%) (Auto) 0 % (0-3) 0 % (0-3) Neutrophils # (Auto) 12.9 x10^3/uL (1.8-7.7) 7.5 x10^3/uL (1.8-7.7) Lymphocytes # (Auto) 0.3 x10^3/uL (1.0-4.8) 0.3 x10^3/uL (1.0-4.8) Monocytes # (Auto) 0.2 x10^3/uL (0.0-1.1) 0.6 x10^3/uL (0.0-1.1) Eosinophils # (Auto) 0.0 x10^3/uL (0.0-0.7) 0.0 x10^3/uL (0.0-0.7) Basophils # (Auto) 0.0 x10^3/uL (0.0-0.2) 0.0 x10^3/uL (0.0-0.2) Segmented Neutrophils % 57 % (35-66) Band Neutrophils % 39 % (0-9) Lymphocytes % 2 % (24-48) Monocytes % 2 % (0-10) Toxic Granulation Slight Toxic Vacuolation Mod Platelet Estimate Decreased (ADEQUATE) Sodium Level 136 mmol/L (136-145) 135 mmol/L (136-145) Potassium Level 4.3 mmol/L (3.5-5.1) 4.5 mmol/L (3.5-5.1) Chloride Level 96 mmol/L (98-107) 101 mmol/L (98-107) Carbon Dioxide Level 31 mmol/L (21-32) 26 mmol/L (21-32) Anion Gap 9 (6-14) 8 (6-14) Blood Urea Nitrogen 20 mg/dL (8-26) 29 mg/dL (8-26) Creatinine 2.3 mg/dL (0.7-1.3) 2.3 mg/dL (0.7-1.3) Estimated GFR (Cockcroft-Gault) 35.4 35.4 BUN/Creatinine Ratio 9 (6-20) 13 (6-20) Glucose Level 229 mg/dL (70-99) 231 mg/dL (70-99) Lactic Acid Level 3.0 mmol/L (0.4-2.0) 1.8 mmol/L (0.4-2.0) Calcium Level 9.1 mg/dL (8.5-10.1) 8.0 mg/dL (8.5-10.1) Total Bilirubin 2.3 mg/dL (0.2-1.0) 3.3 mg/dL (0.2-1.0) Aspartate Amino Transf (AST/SGOT) 103 U/L (15-37) 390 U/L (15-37) Alanine Aminotransferase (ALT/SGPT) 114 U/L (16-63) 398 U/L (16-63) Alkaline Phosphatase 89 U/L (46-116) 82 U/L (46-116) Troponin I Quantitative < 0.017 ng/mL (0.000-0.055) Total Protein 7.1 g/dL (6.4-8.2) 5.8 g/dL (6.4-8.2) Albumin 3.6 g/dL (3.4-5.0) 2.7 g/dL (3.4-5.0) Albumin/Globulin Ratio 1.0 (1.0-1.7) 0.9 (1.0-1.7) Lipase 32 U/L (73-393) Urine Collection Type Unknown Urine Color [place] Urine Clarity Clear Urine pH 6.0 Urine Specific [place] 1.020 Urine Protein 100 mg/dL (NEG-TRACE) Urine Glucose (UA) 100 mg/dL (NEG) Urine Ketones (Stick) Trace mg/dL (NEG) Urine Blood Small (NEG) Urine Nitrite Negative (NEG) Urine Bilirubin Small (NEG) Urine Urobilinogen Dipstick 1.0 mg/dL (0.2 mg/dL) Urine Leukocyte Esterase Trace (NEG) Urine RBC 3-5 /HPF (0-2) Urine WBC 1-4 /HPF (0-4) Urine Squamous Epithelial Cells Occ /LPF Urine Bacteria Few /HPF (0-FEW) Urine Hyaline Casts Many /HPF Urine Mucus Marked /LPF Test 01/11/19 08:20 Glucose (Fingerstick) 206 mg/dL (70-99) Laboratory Tests Test 01/10/19 16:05 01/10/19 18:35 01/10/19 20:43 01/11/19 05:29 White Blood Count 13.5 x10^3/uL (4.0-11.0) 8.5 x10^3/uL (4.0-11.0) Red Blood Count 5.49 x10^6/uL (4.30-5.70) 4.95 x10^6/uL (4.30-5.70) Hemoglobin 15.8 g/dL (13.0-17.5) 14.2 g/dL (13.0-17.5) Hematocrit 46.7 % (39.0-53.0) 41.6 % (39.0-53.0) Mean Corpuscular Volume 85 fL (79-100) 84 fL (79-100) Mean Corpuscular Hemoglobin 29 pg (25-35) 29 pg (25-35) Mean Corpuscular Hemoglobin Concent 34 g/dL (31-37) 34 g/dL (31-37) Red Cell Distribution Width 13.6 % (11.5-14.5) 13.8 % (11.5-14.5) Platelet Count 126 x10^3/uL (140-400) 84 x10^3/uL (140-400) Neutrophils (%) (Auto) 96 % (31-73) 88 % (31-73) Lymphocytes (%) (Auto) 3 % (24-48) 4 % (24-48) Monocytes (%) (Auto) 1 % (0-9) 7 % (0-9) Eosinophils (%) (Auto) 0 % (0-3) 0 % (0-3) Basophils (%) (Auto) 0 % (0-3) 0 % (0-3) Neutrophils # (Auto) 12.9 x10^3/uL (1.8-7.7) 7.5 x10^3/uL (1.8-7.7) Lymphocytes # (Auto) 0.3 x10^3/uL (1.0-4.8) 0.3 x10^3/uL (1.0-4.8) Monocytes # (Auto) 0.2 x10^3/uL (0.0-1.1) 0.6 x10^3/uL (0.0-1.1) Eosinophils # (Auto) 0.0 x10^3/uL (0.0-0.7) 0.0 x10^3/uL (0.0-0.7) Basophils # (Auto) 0.0 x10^3/uL (0.0-0.2) 0.0 x10^3/uL (0.0-0.2) Segmented Neutrophils % 57 % (35-66) Band Neutrophils % 39 % (0-9) Lymphocytes % 2 % (24-48) Monocytes % 2 % (0-10) Toxic Granulation Slight Toxic Vacuolation Mod Platelet Estimate Decreased (ADEQUATE) Sodium Level 136 mmol/L (136-145) 135 mmol/L (136-145) Potassium Level 4.3 mmol/L (3.5-5.1) 4.5 mmol/L (3.5-5.1) Chloride Level 96 mmol/L (98-107) 101 mmol/L (98-107) Carbon Dioxide Level 31 mmol/L (21-32) 26 mmol/L (21-32) Anion Gap 9 (6-14) 8 (6-14) Blood Urea Nitrogen 20 mg/dL (8-26) 29 mg/dL (8-26) Creatinine 2.3 mg/dL (0.7-1.3) 2.3 mg/dL (0.7-1.3) Estimated GFR (Cockcroft-Gault) 35.4 35.4 BUN/Creatinine Ratio 9 (6-20) 13 (6-20) Glucose Level 229 mg/dL (70-99) 231 mg/dL (70-99) Lactic Acid Level 3.0 mmol/L (0.4-2.0) 1.8 mmol/L (0.4-2.0) Calcium Level 9.1 mg/dL (8.5-10.1) 8.0 mg/dL (8.5-10.1) Total Bilirubin 2.3 mg/dL (0.2-1.0) 3.3 mg/dL (0.2-1.0) Aspartate Amino Transf (AST/SGOT) 103 U/L (15-37) 390 U/L (15-37) Alanine Aminotransferase (ALT/SGPT) 114 U/L (16-63) 398 U/L (16-63) Alkaline Phosphatase 89 U/L (46-116) 82 U/L (46-116) Troponin I Quantitative < 0.017 ng/mL (0.000-0.055) Total Protein 7.1 g/dL (6.4-8.2) 5.8 g/dL (6.4-8.2) Albumin 3.6 g/dL (3.4-5.0) 2.7 g/dL (3.4-5.0) Albumin/Globulin Ratio 1.0 (1.0-1.7) 0.9 (1.0-1.7) Lipase 32 U/L (73-393) Urine Collection Type Unknown Urine Color [place] Urine Clarity Clear Urine pH 6.0 Urine Specific [place] 1.020 Urine Protein 100 mg/dL (NEG-TRACE) Urine Glucose (UA) 100 mg/dL (NEG) Urine Ketones (Stick) Trace mg/dL (NEG) Urine Blood Small (NEG) Urine Nitrite Negative (NEG) Urine Bilirubin Small (NEG) Urine Urobilinogen Dipstick 1.0 mg/dL (0.2 mg/dL) Urine Leukocyte Esterase Trace (NEG) Urine RBC 3-5 /HPF (0-2) Urine WBC 1-4 /HPF (0-4) Urine Squamous Epithelial Cells Occ /LPF Urine Bacteria Few /HPF (0-FEW) Urine Hyaline Casts Many /HPF Urine Mucus Marked /LPF Test 01/11/19 08:20 Glucose (Fingerstick) 206 mg/dL (70-99) Review All relevant outside records, renal labs, imaging studies, telemetry/EKG's were reviewed. Images Images CT chest/Abdomen --- There is no mediastinal lymphadenopathy or hematoma. There is no hilar lymphadenopathy. Patchy opacities in the lung bases bilaterally is likely discoid atelectasis. Impression:No acute findings. CT SCAN OF THE ABDOMEN without IV CONTRAST. Findings: Liver: Unremarkable Spleen: Unremarkable Pancreas: Unremarkable Adrenal Glands: Unremarkable Kidneys: Small parapelvic cyst on the left Evaluation of stomach and bowel is limited without oral contrast. Evaluation of solid organs is limited without IV contrast. There is no mass or lymphadenopathy. There is no free air. There is no free fluid. Impression: No acute findings. End Impression CT of pelvis without contrast: There is no lymphadenopathy or free fluid. The bladder is collapsed and not well evaluated. There is no pericolonic inflammation. Impression: No acute findings. VALE MEAD MD Jan 11, 2019 12:19
--- NOTE | 2019-01-11 12:46 | NUR ---
SS following for discharge planning. SS reviewed pt chart. Pt is from home with spouse and is currently on room air. SS will continue to follow for discharge planning.
[2019-01-11 12:53] LABS: CREATININE,RANDOM URINE 325.6 mg/dL (Not Establ.)
[2019-01-11] MEDS: PIPERACILLIN/TAZOBACTAM 2.25 GM in IV NORMAL SALINE 50ML 50 ML IV SCH ×2 (13:35→21:54)
[2019-01-11 14:57] VITALS: BP 108/64
[2019-01-11] MEDS ORDERED: TACROLIMUS 0.5 MG CAPSULE PO SCH (16:00)
[2019-01-11] MEDS ORDERED: VANCOMYCIN 1.5 GM in IV NORMAL SALINE 500ML BAG 500 ML IV SCH (18:00)
[2019-01-11 19:19] VITALS: BP 125/66
[2019-01-11] MEDS ORDERED: INSULIN DETEMIR 32 UNIT SQ SCH (21:00)
[2019-01-11] MEDS: INSULIN GLARGINE SYRINGE. SQ SCH (22:00)
[2019-01-11 22:12] VITALS: BP 118/81
[2019-01-11] MEDS ORDERED: ACETAMINOPHEN 325 MG TABLET. PO PRN (22:15)
[2019-01-11] MEDS ORDERED: INSULIN LISPRO 300 UNITS/3 ML VIAL. SQ SCH (22:15)
[2019-01-11] MEDS ORDERED: LACTULOSE 20 GM/30 ML SOLUTION. PO PRN (22:30)
[2019-01-11] MEDS: PSYLLIUM HUSK (SUGAR FREE) 1 PKT PACKET PO SCH (22:38)
[2019-01-11] MEDS: POLYETHYLENE GLYCOL 3350 17 GM PACKET. PO SCH (22:38)
[2019-01-11] MEDS: fentaNYL PF VIAL 100 MCG/2 ML VIAL IVP PRN (22:39)
[2019-01-11] MEDS ORDERED: INSULIN LISPRO 300 UNITS/3 ML VIAL. SQ ONE (22:45)
[2019-01-12] MEDS ORDERED: ONDANSETRON PF 4 MG/2 ML VIAL. IVP PRN (01:45)
[2019-01-12 02:28] VITALS: BP 108/66
[2019-01-12 05:59] LABS: BASO % 0 % (0-3); EOS % 1 % (0-3); HEMOGLOBIN 14.4 g/dL (13.0-17.5); LYMPH # 0.3 x10^3/uL (1.0-4.8); LYMPH % 5 % (24-48); MEAN CORPUSCULAR HEMOGLOBIN 29 pg (25-35); MEAN CORPUSCULAR HGB CONC 34 g/dL (31-37); MEAN CORPUSCULAR VOLUME 84 fL (79-100); MONO # 0.3 x10^3/uL (0.0-1.1); MONO % 5 % (0-9); NEUT % 89 % (31-73); PLATELET COUNT 70 x10^3/uL (140-400); WHITE BLOOD COUNT 5.6 x10^3/uL (4.0-11.0)
[2019-01-12 06:12] LABS: ALBUMIN 2.9 g/dL (3.4-5.0); ALBUMIN/GLOBULIN RATIO 0.9 (1.0-1.7); CALCIUM 8.7 mg/dL (8.5-10.1); CREATININE 1.3 mg/dL (0.7-1.3); GFR 68.4; POTASSIUM 3.8 mmol/L (3.5-5.1); TOTAL BILIRUBIN 1.4 mg/dL (0.2-1.0); TOTAL PROTEIN 6.3 g/dL (6.4-8.2)
[2019-01-12] MEDS: PIPERACILLIN/TAZOBACTAM 2.25 GM in IV NORMAL SALINE 50ML 50 ML IV SCH (06:35)
[2019-01-12 07:00] VITALS: BP 108/57
[2019-01-12] MEDS ORDERED: TACROLIMUS 0.5 MG CAPSULE PO SCH (08:00)
[2019-01-12] MEDS: ASPIRIN ENTERIC COATED 81 MG TABLET.DR. PO SCH (08:25)
[2019-01-12] MEDS: MULTIVITAMIN with MINERAL TABLET. PO SCH (08:26)
[2019-01-12] MEDS: MYCOPHENOLATE MOFETIL 250 MG CAPSULE. PO SCH (08:26)
[2019-01-12] MEDS: amLODIPine BESYLATE 10 MG TABLET PO SCH (08:26)
[2019-01-12] MEDS: fentaNYL PF VIAL 100 MCG/2 ML VIAL IVP PRN (08:27)
[2019-01-12] MEDS: INSULIN LISPRO 300 UNITS/3 ML VIAL. SQ SCH ×3 (08:39→17:42)
--- NOTE | 2019-01-12 09:16 | PDOC ---
Infectious Disease Note Subjective Subjective s/p fluid bolus yesterday Not feeling well this morning + shakes and sweats last night + WILCOX Some nausea, no vomiting/abd pain/diarrhea Not hungry ROS ROS per HPI Vital Sign Vital Signs Vital Signs Date Time Temp Pulse Resp B/P (MAP) Pulse Ox O2 Delivery O2 Flow Rate FiO2 01/12/19 08:27 18 Room Air 01/12/19 08:26 99 108/66 01/12/19 07:00 98.5 94 98.5 01/11/19 08:00 91.0 Physical Exam PHYSICAL EXAM GENERAL: Sitting on the side of the bed, awake, tired appearing HEENT: Pupils equally round and reactive. Oropharynx pink and moist. No lesions. NECK: Supple. LUNGS: Clear to auscultation. HEART: S1, S2. ABDOMEN: Soft and nontender with bowel sounds present. EXTREMITIES: No gross edema or cyanosis. SKIN: Warm to touch. No signs of rash. NEUROLOGIC: Awake and oriented x 3. Labs Lab Laboratory Tests Test 01/11/19 11:46 01/11/19 16:42 01/11/19 21:43 01/12/19 04:39 Glucose (Fingerstick) 173 mg/dL (70-99) 201 mg/dL (70-99) 155 mg/dL (70-99) White Blood Count 5.6 x10^3/uL (4.0-11.0) Red Blood Count 5.00 x10^6/uL (4.30-5.70) Hemoglobin 14.4 g/dL (13.0-17.5) Hematocrit 42.0 % (39.0-53.0) Mean Corpuscular Volume 84 fL (79-100) Mean Corpuscular Hemoglobin 29 pg (25-35) Mean Corpuscular Hemoglobin Concent 34 g/dL (31-37) Red Cell Distribution Width 14.0 % (11.5-14.5) Platelet Count 70 x10^3/uL (140-400) Neutrophils (%) (Auto) 89 % (31-73) Lymphocytes (%) (Auto) 5 % (24-48) Monocytes (%) (Auto) 5 % (0-9) Eosinophils (%) (Auto) 1 % (0-3) Basophils (%) (Auto) 0 % (0-3) Neutrophils # (Auto) 5.0 x10^3/uL (1.8-7.7) Lymphocytes # (Auto) 0.3 x10^3/uL (1.0-4.8) Monocytes # (Auto) 0.3 x10^3/uL (0.0-1.1) Eosinophils # (Auto) 0.0 x10^3/uL (0.0-0.7) Basophils # (Auto) 0.0 x10^3/uL (0.0-0.2) Sodium Level 138 mmol/L (136-145) Potassium Level 3.8 mmol/L (3.5-5.1) Chloride Level 103 mmol/L (98-107) Carbon Dioxide Level 28 mmol/L (21-32) Anion Gap 7 (6-14) Blood Urea Nitrogen 13 mg/dL (8-26) Creatinine 1.3 mg/dL (0.7-1.3) Estimated GFR (Cockcroft-Gault) 68.4 BUN/Creatinine Ratio 10 (6-20) Glucose Level 221 mg/dL (70-99) Calcium Level 8.7 mg/dL (8.5-10.1) Total Bilirubin 1.4 mg/dL (0.2-1.0) Aspartate Amino Transf (AST/SGOT) 167 U/L (15-37) Alanine Aminotransferase (ALT/SGPT) 308 U/L (16-63) Alkaline Phosphatase 95 U/L (46-116) Total Protein 6.3 g/dL (6.4-8.2) Albumin 2.9 g/dL (3.4-5.0) Albumin/Globulin Ratio 0.9 (1.0-1.7) Test 01/12/19 08:00 Glucose (Fingerstick) 217 mg/dL (70-99) Micro BLOOD CULTURE Final GRAM NEGATIVE RODS IN 2 OF 4 BOTTLES (2 SETS COLLECTED). Objective Assessment GNR sepsis with hypotension, POA 01/10 Immunosuppression secondary to liver transplant, 2012 Lactic acidosis MARK - improved Elevated LFTs - some better Ulcerative colitis, s/p colonoscopy, now on Lialda and Uceris DM II Thrombocytopenia Plan Plan of Care Change abx to meropenem - per Dr. Travis Awaiting ID/susceptibilities of GNR Usually gets yearly flu and pneumo shots in Feb. Continue to monitor labs values D/w nursing D/w Better this afternoon Attending Co-Sign Attending Co-Sign The patient was seen and interviewed as well as examined at the bedside. The chart was reviewed. The case was discussed. Agree with the plan of care. ROHAN CALDERON APRN Jan 12, 2019 09:16 OLVIN TRAVIS MD Jan 12, 2019 14:41
--- NOTE | 2019-01-12 09:44 | PDOC ---
SUBJECTIVE ROS States not feeling good, had fever, sweats, shaking chills , Headache OBJECTIVE Vital Signs Vital Signs Date Time Temp Pulse Resp B/P (MAP) Pulse Ox O2 Delivery O2 Flow Rate FiO2 01/12/19 08:27 18 Room Air 01/12/19 08:26 99 108/66 01/12/19 07:00 98.5 94 98.5 01/11/19 08:00 91.0 I & 0 Intake and Output 01/12/19 07:00 Intake Total 1675 ml Output Total 3425 ml Balance -1750 ml Intake Oral 1625 ml IV Total 50 ml Output Urine Total 3425 ml PHYSICAL EXAM Physical Exam GENERAL: NAD HEENT: Oropharynx pink and moist. No lesions. NECK: Supple. LUNGS: Clear to auscultation. HEART: S1, S2. ABDOMEN: Soft and nontender EXTREMITIES: No gross edema or cyanosis. SKIN: Warm to touch. No rash. NEUROLOGIC: Alert and oriented x 3. No K[place] DIAGNOSIS/ASSESSMENT Assessment & Plan MARK - suspect ATN due to sepsis /Hypotension Baseline Cr 1.2-1.3 (July) , most recent in September 1.8 , CPK Normal Renal function improved to baseline, good uop, monitor for polyuric phase Supportive care, Monitor daily labs Microscopic hematuria-(3-5 RBC's) pt reports chronic Low grade proteinuria- no further pickett indicated at this time S/P Liver Tx in 2012 On Cellcept and Prograf Elevated liver function tests- suspect sec to sepsis Normal LFT's in Nov Gram-negative dipesh sepsis with hypotension On Abx per ID, Vanc dced . Lactic acidosis. Ulcerative colitis, status post colonoscopy, now on Lialda and Uceris since Nov 2018 Diabetes type 2- A1C improved to 7.2 from 8.4 Per Primary Thrombocytopenia - ? 2/2 Sepsis Unlikely due to Cellcept -- on low dose Discussed A/P with pt and COMMENT/RELEVANT DATA Meds Current Medications Medications (Trade) Dose Ordered Sig/Sathish Start Time Stop Time Status Last Admin Dose Admin Acetaminophen (Tylenol) 650 mg PRN Q6HRS PRN 01/11/19 22:15 Alprazolam (Xanax) 0.5 mg PRN Q6HRS PRN 01/10/19 23:45 Amlodipine Besylate (Norvasc) 10 mg DAILY 01/11/19 09:00 01/12/19 08:26 10 MG Aspirin (Ecotrin) 81 mg DAILYWBKFT 01/11/19 08:00 01/12/19 08:25 81 MG Dextrose (Dextrose 50%-Water Syringe) 12.5 gm PRN Q15MIN PRN 01/10/19 23:45 Fentanyl Citrate (Fentanyl 2ml Vial) 50 mcg PRN Q4HRS PRN 01/11/19 22:30 01/12/19 08:27 50 MCG Insulin Glargine (Lantus Syringe) 32 unit QHS 01/11/19 21:00 01/11/19 22:00 18 UNIT Insulin Human Lispro (HumaLOG) 6 units 1X ONCE 01/11/19 22:45 01/11/19 22:46 DC 01/11/19 22:50 6 UNITS Insulin Human Regular (HumuLIN R VIAL) 100 unit DAILYAC 01/11/19 07:30 UNV Lactulose (Lactulose) 20 gm PRN DAILY PRN 01/11/19 22:30 Meropenem 500 mg/ Sodium Chloride 50 ml @ 100 mls/hr Q6HRS 01/12/19 12:00 Multivitamins (Thera M Plus) 1 tab DAILY 01/11/19 09:00 01/12/19 08:26 1 TAB Mycophenolate Mofetil (Cellcept) 500 mg DAILY 01/11/19 09:00 01/12/19 08:26 500 MG Non-Formulary Medication (Insulin Detemir (Levemir)) 32 unit HS 01/11/19 21:00 UNV Ondansetron HCl (Zofran) 4 mg PRN Q6HRS PRN 01/12/19 01:45 01/12/19 02:00 4 MG Piperacillin Sod/ Tazobactam Sod (Zosyn Per Pharmacy) 1 each PRN DAILY PRN 01/11/19 08:00 01/11/19 09:03 DC Piperacillin Sod/ Tazobactam Sod 2.25 gm/Sodium Chloride 50 ml @ 100 mls/hr Q8HRS 01/11/19 14:00 01/12/19 09:15 DC 01/12/19 06:35 100 MLS/HR Piperacillin Sod/ Tazobactam Sod 3.375 gm/Sodium Chloride 50 ml @ 100 mls/hr Q6HRS 01/11/19 08:30 01/11/19 09:03 DC Piperacillin Sod/ Tazobactam Sod 4.5 gm/Sodium Chloride 100 ml @ 200 mls/hr 1X ONCE 01/10/19 18:15 01/10/19 18:44 DC 01/10/19 18:39 200 MLS/HR Polyethylene Glycol (miraLAX PACKET) 17 gm QHS 01/11/19 22:45 01/11/19 22:38 17 GM Psyllium Hydrophilic Mucilloid (Metamucil Fiber Packet) 1 pkt QHS 01/11/19 22:45 01/11/19 22:38 1 PKT Quinine Sulfate (Qualaquin) 324 mg PRN Q8HRS PRN 01/10/19 23:15 01/10/19 23:37 324 MG Sodium Chloride 500 ml @ 500 mls/hr 1X ONCE 01/11/19 12:00 01/11/19 12:59 DC 01/11/19 12:10 500 MLS/HR Tacrolimus (Prograf) 2 mg HS 01/11/19 21:00 01/11/19 21:54 2 MG Vancomycin HCl (Vanco Per Pharmacy) 1 each PRN DAILY PRN 01/10/19 18:15 01/11/19 07:57 DC 01/10/19 20:10 1 EACH Vancomycin HCl (Vancomycin Trough Level) 1 each 1X ONCE 01/12/19 17:30 01/12/19 17:31 Cancel Vancomycin HCl 1.5 gm/Sodium Chloride 500 ml @ 250 mls/hr Q24H 01/11/19 18:00 01/11/19 07:57 DC Zolpidem Tartrate (Ambien) 5 mg PRN QHS PRN 01/10/19 23:45 Lab Laboratory Tests Test 01/11/19 11:46 01/11/19 16:42 01/11/19 21:43 01/12/19 04:39 Glucose (Fingerstick) 173 mg/dL (70-99) 201 mg/dL (70-99) 155 mg/dL (70-99) White Blood Count 5.6 x10^3/uL (4.0-11.0) Red Blood Count 5.00 x10^6/uL (4.30-5.70) Hemoglobin 14.4 g/dL (13.0-17.5) Hematocrit 42.0 % (39.0-53.0) Mean Corpuscular Volume 84 fL (79-100) Mean Corpuscular Hemoglobin 29 pg (25-35) Mean Corpuscular Hemoglobin Concent 34 g/dL (31-37) Red Cell Distribution Width 14.0 % (11.5-14.5) Platelet Count 70 x10^3/uL (140-400) Neutrophils (%) (Auto) 89 % (31-73) Lymphocytes (%) (Auto) 5 % (24-48) Monocytes (%) (Auto) 5 % (0-9) Eosinophils (%) (Auto) 1 % (0-3) Basophils (%) (Auto) 0 % (0-3) Neutrophils # (Auto) 5.0 x10^3/uL (1.8-7.7) Lymphocytes # (Auto) 0.3 x10^3/uL (1.0-4.8) Monocytes # (Auto) 0.3 x10^3/uL (0.0-1.1) Eosinophils # (Auto) 0.0 x10^3/uL (0.0-0.7) Basophils # (Auto) 0.0 x10^3/uL (0.0-0.2) Sodium Level 138 mmol/L (136-145) Potassium Level 3.8 mmol/L (3.5-5.1) Chloride Level 103 mmol/L (98-107) Carbon Dioxide Level 28 mmol/L (21-32) Anion Gap 7 (6-14) Blood Urea Nitrogen 13 mg/dL (8-26) Creatinine 1.3 mg/dL (0.7-1.3) Estimated GFR (Cockcroft-Gault) 68.4 BUN/Creatinine Ratio 10 (6-20) Glucose Level 221 mg/dL (70-99) Calcium Level 8.7 mg/dL (8.5-10.1) Total Bilirubin 1.4 mg/dL (0.2-1.0) Aspartate Amino Transf (AST/SGOT) 167 U/L (15-37) Alanine Aminotransferase (ALT/SGPT) 308 U/L (16-63) Alkaline Phosphatase 95 U/L (46-116) Total Protein 6.3 g/dL (6.4-8.2) Albumin 2.9 g/dL (3.4-5.0) Albumin/Globulin Ratio 0.9 (1.0-1.7) Test 01/12/19 08:00 Glucose (Fingerstick) 217 mg/dL (70-99) Results All relevant outside records, renal labs, imaging studies, telemetry/EKG's were reviewed. VALE MEAD MD Jan 12, 2019 09:44
--- NOTE | 2019-01-12 10:01 | PDOC ---
PROGRESS NOTES Chief Complaint Chief Complaint Sepsis Immunosuppression secondary to liver transplant nausea and vomtiing bacteremia, 05/15, gram neg rods acute transaminitis acute renal failure, ATN History of Present Illness History of Present Illness 01/12/19 Pt was seen and examined at bedside w. 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 Oropharynx pink and moist. No lesions. NECK: Supple. LUNGS: Clear to auscultation. HEART: S1, S2. ABDOMEN: Soft and nontender with bowel sounds present. EXTREMITIES: No gross edema or cyanosis. SKIN: Warm to touch. No signs of rash. NEUROLOGIC: Awake and oriented x 3. General: Alert, Oriented X3, Cooperative, No acute distress Heart: Regular rate Lungs: Clear, Other Abdomen: Normal bowel sounds Extremities: No clubbing, No cyanosis, Normal pulses Skin: No rashes, No breakdown, No significant lesion Labs LABS Laboratory Tests Test 01/11/19 11:46 01/11/19 16:42 01/11/19 21:43 01/12/19 04:39 Glucose (Fingerstick) 173 mg/dL (70-99) 201 mg/dL (70-99) 155 mg/dL (70-99) White Blood Count 5.6 x10^3/uL (4.0-11.0) Red Blood Count 5.00 x10^6/uL (4.30-5.70) Hemoglobin 14.4 g/dL (13.0-17.5) Hematocrit 42.0 % (39.0-53.0) Mean Corpuscular Volume 84 fL (79-100) Mean Corpuscular Hemoglobin 29 pg (25-35) Mean Corpuscular Hemoglobin Concent 34 g/dL (31-37) Red Cell Distribution Width 14.0 % (11.5-14.5) Platelet Count 70 x10^3/uL (140-400) Neutrophils (%) (Auto) 89 % (31-73) Lymphocytes (%) (Auto) 5 % (24-48) Monocytes (%) (Auto) 5 % (0-9) Eosinophils (%) (Auto) 1 % (0-3) Basophils (%) (Auto) 0 % (0-3) Neutrophils # (Auto) 5.0 x10^3/uL (1.8-7.7) Lymphocytes # (Auto) 0.3 x10^3/uL (1.0-4.8) Monocytes # (Auto) 0.3 x10^3/uL (0.0-1.1) Eosinophils # (Auto) 0.0 x10^3/uL (0.0-0.7) Basophils # (Auto) 0.0 x10^3/uL (0.0-0.2) Sodium Level 138 mmol/L (136-145) Potassium Level 3.8 mmol/L (3.5-5.1) Chloride Level 103 mmol/L (98-107) Carbon Dioxide Level 28 mmol/L (21-32) Anion Gap 7 (6-14) Blood Urea Nitrogen 13 mg/dL (8-26) Creatinine 1.3 mg/dL (0.7-1.3) Estimated GFR (Cockcroft-Gault) 68.4 BUN/Creatinine Ratio 10 (6-20) Glucose Level 221 mg/dL (70-99) Calcium Level 8.7 mg/dL (8.5-10.1) Total Bilirubin 1.4 mg/dL (0.2-1.0) Aspartate Amino Transf (AST/SGOT) 167 U/L (15-37) Alanine Aminotransferase (ALT/SGPT) 308 U/L (16-63) Alkaline Phosphatase 95 U/L (46-116) Total Protein 6.3 g/dL (6.4-8.2) Albumin 2.9 g/dL (3.4-5.0) Albumin/Globulin Ratio 0.9 (1.0-1.7) Test 01/12/19 08:00 Glucose (Fingerstick) 217 mg/dL (70-99) Review of Systems Review of Systems nausea, chills weakness Assessment and Plan Assessmemt and Plan Problems Medical Problems: (1) Abdominal pain Status: Acute (2) MARK (acute kidney injury) Status: Acute (3) Hyperglycemia due to type 2 diabetes mellitus Status: Acute (4) Lactic acid acidosis Status: Acute (5) Renal insufficiency Status: Acute (6) Severe sepsis Status: Acute Comment Review of Relevant I have reviewed the following items markell (where applicable) has been applied. Labs Laboratory Tests Test 01/10/19 16:05 01/10/19 18:35 01/10/19 20:43 01/11/19 05:29 White Blood Count 13.5 x10^3/uL (4.0-11.0) 8.5 x10^3/uL (4.0-11.0) Red Blood Count 5.49 x10^6/uL (4.30-5.70) 4.95 x10^6/uL (4.30-5.70) Hemoglobin 15.8 g/dL (13.0-17.5) 14.2 g/dL (13.0-17.5) Hematocrit 46.7 % (39.0-53.0) 41.6 % (39.0-53.0) Mean Corpuscular Volume 85 fL (79-100) 84 fL (79-100) Mean Corpuscular Hemoglobin 29 pg (25-35) 29 pg (25-35) Mean Corpuscular Hemoglobin Concent 34 g/dL (31-37) 34 g/dL (31-37) Red Cell Distribution Width 13.6 % (11.5-14.5) 13.8 % (11.5-14.5) Platelet Count 126 x10^3/uL (140-400) 84 x10^3/uL (140-400) Neutrophils (%) (Auto) 96 % (31-73) 88 % (31-73) Lymphocytes (%) (Auto) 3 % (24-48) 4 % (24-48) Monocytes (%) (Auto) 1 % (0-9) 7 % (0-9) Eosinophils (%) (Auto) 0 % (0-3) 0 % (0-3) Basophils (%) (Auto) 0 % (0-3) 0 % (0-3) Neutrophils # (Auto) 12.9 x10^3/uL (1.8-7.7) 7.5 x10^3/uL (1.8-7.7) Lymphocytes # (Auto) 0.3 x10^3/uL (1.0-4.8) 0.3 x10^3/uL (1.0-4.8) Monocytes # (Auto) 0.2 x10^3/uL (0.0-1.1) 0.6 x10^3/uL (0.0-1.1) Eosinophils # (Auto) 0.0 x10^3/uL (0.0-0.7) 0.0 x10^3/uL (0.0-0.7) Basophils # (Auto) 0.0 x10^3/uL (0.0-0.2) 0.0 x10^3/uL (0.0-0.2) Segmented Neutrophils % 57 % (35-66) Band Neutrophils % 39 % (0-9) Lymphocytes % 2 % (24-48) Monocytes % 2 % (0-10) Toxic Granulation Slight Toxic Vacuolation Mod Platelet Estimate Decreased (ADEQUATE) Sodium Level 136 mmol/L (136-145) 135 mmol/L (136-145) Potassium Level 4.3 mmol/L (3.5-5.1) 4.5 mmol/L (3.5-5.1) Chloride Level 96 mmol/L (98-107) 101 mmol/L (98-107) Carbon Dioxide Level 31 mmol/L (21-32) 26 mmol/L (21-32) Anion Gap 9 (6-14) 8 (6-14) Blood Urea Nitrogen 20 mg/dL (8-26) 29 mg/dL (8-26) Creatinine 2.3 mg/dL (0.7-1.3) 2.3 mg/dL (0.7-1.3) Estimated GFR (Cockcroft-Gault) 35.4 35.4 BUN/Creatinine Ratio 9 (6-20) 13 (6-20) Glucose Level 229 mg/dL (70-99) 231 mg/dL (70-99) Lactic Acid Level 3.0 mmol/L (0.4-2.0) 1.8 mmol/L (0.4-2.0) Calcium Level 9.1 mg/dL (8.5-10.1) 8.0 mg/dL (8.5-10.1) Total Bilirubin 2.3 mg/dL (0.2-1.0) 3.3 mg/dL (0.2-1.0) Aspartate Amino Transf (AST/SGOT) 103 U/L (15-37) 390 U/L (15-37) Alanine Aminotransferase (ALT/SGPT) 114 U/L (16-63) 398 U/L (16-63) Alkaline Phosphatase 89 U/L (46-116) 82 U/L (46-116) Troponin I Quantitative < 0.017 ng/mL (0.000-0.055) Total Protein 7.1 g/dL (6.4-8.2) 5.8 g/dL (6.4-8.2) Albumin 3.6 g/dL (3.4-5.0) 2.7 g/dL (3.4-5.0) Albumin/Globulin Ratio 1.0 (1.0-1.7) 0.9 (1.0-1.7) Lipase 32 U/L (73-393) Urine Collection Type Unknown Urine Color [place] Urine Clarity Clear Urine pH 6.0 Urine Specific [place] 1.020 Urine Protein 100 mg/dL (NEG-TRACE) Urine Glucose (UA) 100 mg/dL (NEG) Urine Ketones (Stick) Trace mg/dL (NEG) Urine Blood Small (NEG) Urine Nitrite Negative (NEG) Urine Bilirubin Small (NEG) Urine Urobilinogen Dipstick 1.0 mg/dL (0.2 mg/dL) Urine Leukocyte Esterase Trace (NEG) Urine RBC 3-5 /HPF (0-2) Urine WBC 1-4 /HPF (0-4) Urine Squamous Epithelial Cells Occ /LPF Urine Bacteria Few /HPF (0-FEW) Urine Hyaline Casts Many /HPF Urine Mucus Marked /LPF Urine Random Creatinine 325.6 mg/dL (Not Establ.) Urine Random Total Protein 105.1 mg/dL (Not Establ.) Urine Protein/Creatinine Ratio 323 mg/g (0-200) Test 01/11/19 08:20 01/11/19 11:46 01/11/19 16:42 01/11/19 21:43 Glucose (Fingerstick) 206 mg/dL (70-99) 173 mg/dL (70-99) 201 mg/dL (70-99) 155 mg/dL (70-99) Test 01/12/19 04:39 01/12/19 08:00 White Blood Count 5.6 x10^3/uL (4.0-11.0) Red Blood Count 5.00 x10^6/uL (4.30-5.70) Hemoglobin 14.4 g/dL (13.0-17.5) Hematocrit 42.0 % (39.0-53.0) Mean Corpuscular Volume 84 fL (79-100) Mean Corpuscular Hemoglobin 29 pg (25-35) Mean Corpuscular Hemoglobin Concent 34 g/dL (31-37) Red Cell Distribution Width 14.0 % (11.5-14.5) Platelet Count 70 x10^3/uL (140-400) Neutrophils (%) (Auto) 89 % (31-73) Lymphocytes (%) (Auto) 5 % (24-48) Monocytes (%) (Auto) 5 % (0-9) Eosinophils (%) (Auto) 1 % (0-3) Basophils (%) (Auto) 0 % (0-3) Neutrophils # (Auto) 5.0 x10^3/uL (1.8-7.7) Lymphocytes # (Auto) 0.3 x10^3/uL (1.0-4.8) Monocytes # (Auto) 0.3 x10^3/uL (0.0-1.1) Eosinophils # (Auto) 0.0 x10^3/uL (0.0-0.7) Basophils # (Auto) 0.0 x10^3/uL (0.0-0.2) Sodium Level 138 mmol/L (136-145) Potassium Level 3.8 mmol/L (3.5-5.1) Chloride Level 103 mmol/L (98-107) Carbon Dioxide Level 28 mmol/L (21-32) Anion Gap 7 (6-14) Blood Urea Nitrogen 13 mg/dL (8-26) Creatinine 1.3 mg/dL (0.7-1.3) Estimated GFR (Cockcroft-Gault) 68.4 BUN/Creatinine Ratio 10 (6-20) Glucose Level 221 mg/dL (70-99) Calcium Level 8.7 mg/dL (8.5-10.1) Total Bilirubin 1.4 mg/dL (0.2-1.0) Aspartate Amino Transf (AST/SGOT) 167 U/L (15-37) Alanine Aminotransferase (ALT/SGPT) 308 U/L (16-63) Alkaline Phosphatase 95 U/L (46-116) Total Protein 6.3 g/dL (6.4-8.2) Albumin 2.9 g/dL (3.4-5.0) Albumin/Globulin Ratio 0.9 (1.0-1.7) Glucose (Fingerstick) 217 mg/dL (70-99) Laboratory Tests Test 01/11/19 11:46 01/11/19 16:42 01/11/19 21:43 01/12/19 04:39 Glucose (Fingerstick) 173 mg/dL (70-99) 201 mg/dL (70-99) 155 mg/dL (70-99) White Blood Count 5.6 x10^3/uL (4.0-11.0) Red Blood Count 5.00 x10^6/uL (4.30-5.70) Hemoglobin 14.4 g/dL (13.0-17.5) Hematocrit 42.0 % (39.0-53.0) Mean Corpuscular Volume 84 fL (79-100) Mean Corpuscular Hemoglobin 29 pg (25-35) Mean Corpuscular Hemoglobin Concent 34 g/dL (31-37) Red Cell Distribution Width 14.0 % (11.5-14.5) Platelet Count 70 x10^3/uL (140-400) Neutrophils (%) (Auto) 89 % (31-73) Lymphocytes (%) (Auto) 5 % (24-48) Monocytes (%) (Auto) 5 % (0-9) Eosinophils (%) (Auto) 1 % (0-3) Basophils (%) (Auto) 0 % (0-3) Neutrophils # (Auto) 5.0 x10^3/uL (1.8-7.7) Lymphocytes # (Auto) 0.3 x10^3/uL (1.0-4.8) Monocytes # (Auto) 0.3 x10^3/uL (0.0-1.1) Eosinophils # (Auto) 0.0 x10^3/uL (0.0-0.7) Basophils # (Auto) 0.0 x10^3/uL (0.0-0.2) Sodium Level 138 mmol/L (136-145) Potassium Level 3.8 mmol/L (3.5-5.1) Chloride Level 103 mmol/L (98-107) Carbon Dioxide Level 28 mmol/L (21-32) Anion Gap 7 (6-14) Blood Urea Nitrogen 13 mg/dL (8-26) Creatinine 1.3 mg/dL (0.7-1.3) Estimated GFR (Cockcroft-Gault) 68.4 BUN/Creatinine Ratio 10 (6-20) Glucose Level 221 mg/dL (70-99) Calcium Level 8.7 mg/dL (8.5-10.1) Total Bilirubin 1.4 mg/dL (0.2-1.0) Aspartate Amino Transf (AST/SGOT) 167 U/L (15-37) Alanine Aminotransferase (ALT/SGPT) 308 U/L (16-63) Alkaline Phosphatase 95 U/L (46-116) Total Protein 6.3 g/dL (6.4-8.2) Albumin 2.9 g/dL (3.4-5.0) Albumin/Globulin Ratio 0.9 (1.0-1.7) Test 01/12/19 08:00 Glucose (Fingerstick) 217 mg/dL (70-99) Microbiology 01/10/19 Blood Culture - Final, Complete Medications Current Medications Sodium Chloride 500 ml @ 500 mls/hr 1X ONCE IV Last administered on 01/10/19at 16:29; Start 01/10/19 at 16:30; Stop 01/10/19 at 17:29; Status DC Fentanyl Citrate (Fentanyl 2ml Vial) 25 mcg 1X ONCE IV Last administered on 01/10/19at 17:21; Start 01/10/19 at 17:00; Stop 01/10/19 at 17:01; Status DC Ondansetron HCl (Zofran) 4 mg 1X ONCE IVP Last administered on 01/10/19at 17:20; Start 01/10/19 at 17:00; Stop 01/10/19 at 17:01; Status DC Acetaminophen (Tylenol) 1,000 mg 1X ONCE PO Last administered on 01/10/19at 18:35; Start 01/10/19 at 18:15; Stop 01/10/19 at 18:19; Status DC Piperacillin Sod/ Tazobactam Sod 4.5 gm/Sodium Chloride 100 ml @ 200 mls/hr 1X ONCE IV Last administered on 01/10/19at 18:39; Start 01/10/19 at 18:15; Stop 01/10/19 at 18:44; Status DC Vancomycin HCl (Vanco Per Pharmacy) 1 each PRN DAILY PRN MC SEE COMMENTS Last administered on 01/10/19at 20:10; Start 01/10/19 at 18:15; Stop 01/11/19 at 07:57; Status DC Sodium Chloride 1,000 ml @ 1,000 mls/hr 1X ONCE IV Last administered on 01/10/19at 18:39; Start 01/10/19 at 18:30; Stop 01/10/19 at 19:29; Status DC Vancomycin HCl 1.5 gm/Sodium Chloride 500 ml @ 250 mls/hr 1X ONCE IV Last administered on 01/10/19at 18:43; Start 01/10/19 at 18:30; Stop 01/10/19 at 20:29; Status DC Ondansetron HCl (Zofran) 4 mg PRN Q8HRS PRN IV NAUSEA/VOMITING; Start 01/10/19 at 19:45; Stop 01/11/19 at 19:44; Status DC Fentanyl Citrate (Fentanyl 2ml Vial) 50 mcg PRN Q1HR PRN IV PAIN Last administered on 01/11/19at 12:50; Start 01/10/19 at 19:45; Stop 01/11/19 at 19:44; Status DC Vancomycin HCl 1.5 gm/Sodium Chloride 500 ml @ 250 mls/hr Q24H IV ; Start 01/11/19 at 18:00; Stop 01/11/19 at 07:57; Status DC Vancomycin HCl (Vancomycin Trough Level) 1 each 1X ONCE MC ; Start 01/12/19 at 17:30; Stop 01/12/19 at 17:31; Status Cancel Quinine Sulfate (Qualaquin) 324 mg PRN Q8HRS PRN PO MUSCLE CRAMPS Last administered on 01/10/19at 23:37; Start 01/10/19 at 23:15 Alprazolam (Xanax) 0.5 mg PRN Q6HRS PRN PO ANXIETY / AGITATION; Start 01/10/19 at 23:45 Amlodipine Besylate (Norvasc) 10 mg DAILY PO Last administered on 01/12/19 08:26; Start 01/11/19 at 09:00 Aspirin (Ecotrin) 81 mg DAILYWBKFT PO Last administered on 01/12/19 08:25; Start 01/11/19 at 08:00 Insulin Human Regular (HumuLIN R VIAL) 100 unit DAILYAC SQ ; Start 01/11/19 at 07:30; Status UNV Tacrolimus (Prograf) 2 mg DAILY16 PO ; Start 01/11/19 at 16:00; Stop 01/11/19 at 16:09; Status DC Tacrolimus (Prograf) 3 mg DAILY05 PO Last administered on 01/11/19 05:52; Start 01/11/19 at 05:00; Stop 01/11/19 at 06:09; Status DC Non-Formulary Medication (Insulin Detemir (Levemir)) 32 unit HS SQ ; Start 01/11/19 at 21:00; Status UNV Multivitamins (Thera M Plus) 1 tab DAILY PO Last administered on 01/12/19 08:26; Start 01/11/19 at 09:00 Mycophenolate Mofetil (Cellcept) 500 mg DAILY PO Last administered on 01/12/19 08:26; Start 01/11/19 at 09:00 Zolpidem Tartrate (Ambien) 5 mg PRN QHS PRN PO INSOMNIA,MRX1 PRN; Start 01/10/19 at 23:45 Insulin Human Lispro (HumaLOG) 0-9 UNITS TIDWMEALS SQ Last administered on 01/12/19 08:39; Start 01/11/19 at 08:00 Dextrose (Dextrose 50%-Water Syringe) 12.5 gm PRN Q15MIN PRN IV SEE COMMENTS; Start 01/10/19 at 23:45 Insulin Glargine (Lantus Syringe) 32 unit QHS SQ Last administered on 01/11/19at 22:00; Start 01/11/19 at 21:00 Tacrolimus (Prograf) 3 mg DAILY08 PO Last administered on 01/12/19 08:25; Start 01/12/19 at 08:00 Piperacillin Sod/ Tazobactam Sod (Zosyn Per Pharmacy) 1 each PRN DAILY PRN MC SEE COMMENTS; Start 01/11/19 at 08:00; Stop 01/11/19 at 09:03; Status DC Piperacillin Sod/ Tazobactam Sod 3.375 gm/Sodium Chloride 50 ml @ 100 mls/hr Q6HRS IV ; Start 01/11/19 at 08:30; Stop 01/11/19 at 09:03; Status DC Piperacillin Sod/ Tazobactam Sod 2.25 gm/Sodium Chloride 50 ml @ 100 mls/hr Q8HRS IV Last administered on 01/12/19at 06:35; Start 01/11/19 at 14:00; Stop 01/12/19 at 09:15; Status DC Sodium Chloride 500 ml @ 500 mls/hr 1X ONCE IV Last administered on 01/11/19at 12:10; Start 01/11/19 at 12:00; Stop 01/11/19 at 12:59; Status DC Tacrolimus (Prograf) 2 mg HS PO Last administered on 01/11/19at 21:54; Start 01/11/19 at 21:00 Acetaminophen (Tylenol) 650 mg PRN Q6HRS PRN PO headache; Start 01/11/19 at 22:15 Insulin Human Lispro (HumaLOG) 6 units 1X SQ ; Start 01/11/19 at 22:15; Stop 01/11/19 at 22:40; Status DC Fentanyl Citrate (Fentanyl 2ml Vial) 50 mcg PRN Q4HRS PRN IVP PAIN Last administered on 01/12/19at 08:27; Start 01/11/19 at 22:30 Polyethylene Glycol (miraLAX PACKET) 17 gm QHS PO Last administered on 01/11/19at 22:38; Start 01/11/19 at 22:45 Psyllium Hydrophilic Mucilloid (Metamucil Fiber Packet) 1 pkt QHS PO Last administered on 01/11/19at 22:38; Start 01/11/19 at 22:45 Lactulose (Lactulose) 20 gm PRN DAILY PRN PO CONSTIPATION; Start 01/11/19 at 22:30 Insulin Human Lispro (HumaLOG) 6 units 1X ONCE SQ Last administered on 01/11/19at 22:50; Start 01/11/19 at 22:45; Stop 01/11/19 at 22:46; Status DC Ondansetron HCl (Zofran) 4 mg PRN Q6HRS PRN IVP NAUSEA/VOMITING Last administered on 01/12/19at 02:00; Start 01/12/19 at 01:45 Meropenem 500 mg/ Sodium Chloride 50 ml @ 100 mls/hr Q6HRS IV ; Start 01/12/19 at 12:00 Active Scripts Active Reported Multivitamins (Multivitamin) 1 Each Tablet 1 Tab PO DAILY Alprazolam 0.5 Mg Tablet 0.5 Mg PO PRN Q6HRS PRN Humalog (Insulin Lispro) 100 Unit/1 Ml Vial 100 Unit SQ DAILYAC Levemir (Insulin Detemir) 100 Unit/1 Ml Vial 32 Unit SQ HS Amlodipine Besylate 10 Mg Tablet 10 Mg PO DAILY Lo-Dose Aspirin EC (Aspirin) 81 Mg Tablet.dr 81 Mg PO DAILY Zolpidem Tartrate 10 Mg Tablet 10 Mg PO PRN QHS PRN Prograf (Tacrolimus) 1 Mg Capsule 2 Cap PO DAILY16 Prograf (Tacrolimus) 1 Mg Capsule 3 Cap PO DAILY05 Cellcept (Mycophenolate Mofetil) 500 Mg Tablet 500 Mg PO DAILY Vitals/I & O Vital Sign - Last 24 Hours 01/11/19 01/11/19 01/11/19 01/11/19 11:00 12:50 14:57 19:19 Temp 98.3 98.5 98.7 98.3 98.5 98.7 Pulse 86 79 86 Resp 18 18 16 B/P (MAP) 108/62 (77) 108/64 (79) 125/66 (85) Pulse Ox 96 O2 Delivery Room Air Room Air Room Air Room Air 01/11/19 01/11/19 01/11/19 01/11/19 20:00 22:12 22:39 23:09 Temp 98.5 98.5 Pulse 95 Resp 16 B/P (MAP) 118/81 (93) Pulse Ox 95 95 95 O2 Delivery Room Air Room Air Room Air Room Air 01/12/19 01/12/19 01/12/19 01/12/19 02:28 07:00 08:26 08:27 Temp 99.8 98.5 99.8 98.5 Pulse 99 83 99 Resp 20 20 18 B/P (MAP) 108/66 (80) 108/57 (74) 108/66 Pulse Ox 90 94 O2 Delivery Room Air Room Air Room Air Intake and Output 01/11/19 01/11/19 01/12/19 14:59 22:59 06:59 Intake Total 105 ml 750 ml 820 ml Output Total 1700 ml 1400 ml 325 ml Balance -1595 ml -650 ml 495 ml CLOVER SELBY MD Jan 12, 2019 10:01
[2019-01-12] MEDS: TACROLIMUS 0.5 MG CAPSULE PO SCH ×2 (10:15→20:36)
[2019-01-12] MEDS: oxyCODONE IR 5 MG TABLET PO PRN ×2 (10:37→19:40)
--- NOTE | 2019-01-12 10:41 | PDOC2 ---
GI CONSULT Reason For Consult: Transaminitis post liver transplant HPI: HPI: Pleasant 58 y/o male from [place] in town for work. Awoke early Tuesday morning w/ uncontrollable shaking and sweats - back and abdomen ("muscles") sore after - called ambulance w/ weakness and was admitted through ER. Has GNR bacteremia w/ elevated LFTs (improved) and MARK (resolved). Similar situation (also with "out of control" diabetes) in [place] in 2013 - took antibiotics for about 1 week. Has had night sweats for about 4 months. 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 Last liver biopsy was about 2 years ago. EGD and colonoscopy in [place] in 11/2018 for intermittent bleeding - EGD reportedly normal, colonoscopy reportedly showed ulcerative colitis ("my autoimmune disease was starting to attack my colon"). Now taking Lialda and Uceris (other notes suggest - he can't remember the names right now) - has not had more bleeding but now stools 2-3 times daily instead of once (on Miralax and Metamucil here). Sev eral previous colonoscopies were normal. Did not have diarrhea or abd pain prior to colonoscopy. No GERD, dysphagia, vomiting, constipation, or weight loss. Not much appetite w/ some nausea. S/p cholecystectomy w/ liver transplant. No pancreas or PUD history. On ASA. PMH: PMH: PSC, UC, DM liver transplant, cholecystectomy, right inguinal hernia repair, left shoulder surgery FH: Family History: No pertinent hx (no IBD), DM Social History: Smoke: No ALCOHOL: none Drugs: None ROS: GEN: +chills/shakes HEENT: Denies blurred vision, sore throat CV: Denies chest pain RESP: Denies shortness of air, cough GI: Per HPI : Denies hematuria, dysuria ENDO: Denies weight changes NEURO: Denies confusion, dizziness MSK: +weakness SKIN: Denies jaundice, pruritus Vitals: Vitals: Vital Signs Date Time Temp Pulse Resp B/P (MAP) Pulse Ox O2 Delivery O2 Flow Rate FiO2 01/12/19 08:27 18 Room Air 01/12/19 08:26 99 108/66 01/12/19 07:00 98.5 94 98.5 01/11/19 08:00 91.0 Labs: Labs: Laboratory Tests Test 01/11/19 11:46 01/11/19 16:42 01/11/19 21:43 01/12/19 04:39 Glucose (Fingerstick) 173 mg/dL (70-99) 201 mg/dL (70-99) 155 mg/dL (70-99) White Blood Count 5.6 x10^3/uL (4.0-11.0) Red Blood Count 5.00 x10^6/uL (4.30-5.70) Hemoglobin 14.4 g/dL (13.0-17.5) Hematocrit 42.0 % (39.0-53.0) Mean Corpuscular Volume 84 fL (79-100) Mean Corpuscular Hemoglobin 29 pg (25-35) Mean Corpuscular Hemoglobin Concent 34 g/dL (31-37) Red Cell Distribution Width 14.0 % (11.5-14.5) Platelet Count 70 x10^3/uL (140-400) Neutrophils (%) (Auto) 89 % (31-73) Lymphocytes (%) (Auto) 5 % (24-48) Monocytes (%) (Auto) 5 % (0-9) Eosinophils (%) (Auto) 1 % (0-3) Basophils (%) (Auto) 0 % (0-3) Neutrophils # (Auto) 5.0 x10^3/uL (1.8-7.7) Lymphocytes # (Auto) 0.3 x10^3/uL (1.0-4.8) Monocytes # (Auto) 0.3 x10^3/uL (0.0-1.1) Eosinophils # (Auto) 0.0 x10^3/uL (0.0-0.7) Basophils # (Auto) 0.0 x10^3/uL (0.0-0.2) Sodium Level 138 mmol/L (136-145) Potassium Level 3.8 mmol/L (3.5-5.1) Chloride Level 103 mmol/L (98-107) Carbon Dioxide Level 28 mmol/L (21-32) Anion Gap 7 (6-14) Blood Urea Nitrogen 13 mg/dL (8-26) Creatinine 1.3 mg/dL (0.7-1.3) Estimated GFR (Cockcroft-Gault) 68.4 BUN/Creatinine Ratio 10 (6-20) Glucose Level 221 mg/dL (70-99) Calcium Level 8.7 mg/dL (8.5-10.1) Total Bilirubin 1.4 mg/dL (0.2-1.0) Aspartate Amino Transf (AST/SGOT) 167 U/L (15-37) Alanine Aminotransferase (ALT/SGPT) 308 U/L (16-63) Alkaline Phosphatase 95 U/L (46-116) Total Protein 6.3 g/dL (6.4-8.2) Albumin 2.9 g/dL (3.4-5.0) Albumin/Globulin Ratio 0.9 (1.0-1.7) Test 01/12/19 08:00 Glucose (Fingerstick) 217 mg/dL (70-99) Allergies: Coded Allergies: Sulfa (Sulfonamide Antibiotics) (Verified Allergy, Intermediate, hives, 01/10/19) Medications: Current Medications Medications (Trade) Dose Ordered Sig/Sathish Route PRN Reason Start Time Stop Time Status Last Admin Dose Admin Insulin Glargine (Lantus Syringe) 32 unit QHS SQ 01/11/19 21:00 01/11/19 22:00 Tacrolimus (Prograf) 3 mg DAILY08 PO 01/12/19 08:00 01/12/19 10:11 DC 01/12/19 08:25 Piperacillin Sod/ Tazobactam Sod 2.25 gm/Sodium Chloride 50 ml @ 100 mls/hr Q8HRS IV 01/11/19 14:00 01/12/19 09:15 DC 01/12/19 06:35 Sodium Chloride 500 ml @ 500 mls/hr 1X ONCE IV 01/11/19 12:00 01/11/19 12:59 DC 01/11/19 12:10 Tacrolimus (Prograf) 2 mg HS PO 01/11/19 21:00 01/11/19 21:54 Fentanyl Citrate (Fentanyl 2ml Vial) 50 mcg PRN Q4HRS PRN IVP PAIN 01/11/19 22:30 01/12/19 08:27 Polyethylene Glycol (miraLAX PACKET) 17 gm QHS PO 01/11/19 22:45 01/11/19 22:38 Psyllium Hydrophilic Mucilloid (Metamucil Fiber Packet) 1 pkt QHS PO 01/11/19 22:45 01/11/19 22:38 Insulin Human Lispro (HumaLOG) 6 units 1X ONCE SQ 01/11/19 22:45 01/11/19 22:46 DC 01/11/19 22:50 Ondansetron HCl (Zofran) 4 mg PRN Q6HRS PRN IVP NAUSEA/VOMITING 01/12/19 01:45 01/12/19 02:00 Imaging: Imaging: CXR 01/10 IMPRESSION: No acute pulmonary finding. CT C/A/P w/o contrast 01/10 Impression: No acute findings. PE: GEN: NAD HEENT: Atraumatic, PERRL LUNGS: CTAB HEART: RRR ABD: NABS, S/ND/NT EXTREMITY: No edema SKIN: No rashes, no jaundice NEURO/PSYCH: A & O �3 A/P: A/P: Rigors, sweats, GNR bacteremia Immunosuppression s/p liver transplant for PSC Recent UC diagnosis MARK - resolved Abnormal LFTs - improved CRC screen - UTD -- WBC and bili improved w/ atbx, Alk Phos remains normal. Continue antibiotics per ID and await final blood culture, monitor LFTs, and consider liver US if no continued improvement. Follow-up w/ hepatology in [place] as planned, consider liver biopsy if indicated. LORIE FERRELL Jan 12, 2019 10:41
[2019-01-12 11:00] VITALS: BP 115/75
[2019-01-12] MEDS: MEROPENEM 500 MG in IV NORMAL SALINE 50ML 50 ML IV SCH ×3 (12:16→23:26)
[2019-01-12 15:00] VITALS: BP 113/73
[2019-01-12 19:11] VITALS: BP 113/73
[2019-01-12] MEDS: PSYLLIUM HUSK (SUGAR FREE) 1 PKT PACKET PO SCH (20:20)
[2019-01-12] MEDS: POLYETHYLENE GLYCOL 3350 17 GM PACKET. PO SCH (20:20)
[2019-01-12] MEDS ORDERED: INSULIN LISPRO 300 UNITS/3 ML VIAL. SQ SCH ×2 (20:30→20:45)
[2019-01-12] MEDS: INSULIN GLARGINE SYRINGE. SQ SCH (20:39)
[2019-01-12 22:56] VITALS: BP 129/86
[2019-01-13] MEDS: fentaNYL PF VIAL 100 MCG/2 ML VIAL IVP PRN ×2 (00:09→22:17)
[2019-01-13 03:00] VITALS: BP 111/7
[2019-01-13 04:41] LABS: PROTHROMBIN TIME PATIENT 13.1 SEC (11.7-14.0)
[2019-01-13 04:43] LABS: BASO % 0 % (0-3); EOS % 1 % (0-3); HEMATOCRIT 41.8 % (39.0-53.0); HEMOGLOBIN 14.3 g/dL (13.0-17.5); LYMPH # 0.8 x10^3/uL (1.0-4.8); LYMPH % 13 % (24-48); MEAN CORPUSCULAR HEMOGLOBIN 29 pg (25-35); MEAN CORPUSCULAR HGB CONC 34 g/dL (31-37); MEAN CORPUSCULAR VOLUME 84 fL (79-100); MONO # 0.7 x10^3/uL (0.0-1.1); MONO % 11 % (0-9); NEUT # 4.9 x10^3/uL (1.8-7.7); NEUT % 75 % (31-73); PLATELET COUNT 82 x10^3/uL (140-400); RED BLOOD COUNT 4.98 x10^6/uL (4.30-5.70); RED CELL DISTRIBUTION WIDTH 13.4 % (11.5-14.5); WHITE BLOOD COUNT 6.5 x10^3/uL (4.0-11.0)
[2019-01-13 04:52] LABS: ALBUMIN 2.8 g/dL (3.4-5.0); ALBUMIN/GLOBULIN RATIO 0.8 (1.0-1.7); CREATININE 1.3 mg/dL (0.7-1.3); GFR 68.4; POTASSIUM 3.6 mmol/L (3.5-5.1); TOTAL BILIRUBIN 1.2 mg/dL (0.2-1.0); TOTAL PROTEIN 6.4 g/dL (6.4-8.2)
[2019-01-13] MEDS: MEROPENEM 500 MG in IV NORMAL SALINE 50ML 50 ML IV SCH ×4 (06:20→23:51)
[2019-01-13 07:25] VITALS: BP 105/56
--- NOTE | 2019-01-13 07:52 | PDOC ---
Infectious Disease Note Subjective Subjective Better. has a mild WILCOX Less F/C/S/N/V/D/SOA Occ itch ROS ROS o/w neg Vital Sign Vital Signs Vital Signs Date Time Temp Pulse Resp B/P (MAP) Pulse Ox O2 Delivery O2 Flow Rate FiO2 01/13/19 07:25 98.7 77 18 105/56 (72) 90 Room Air 98.7 Physical Exam PHYSICAL EXAM GENERAL: NAD/ coop -looks well HEENT: Pupils equally round and reactive. Oropharynx pink and moist. No lesions. NECK: Supple. LUNGS: Clear to auscultation. HEART: S1, S2. ABDOMEN: Soft and nontender with bowel sounds present. EXTREMITIES: No gross edema or cyanosis. SKIN: Warm to touch. No signs of rash. NEUROLOGIC: Awake and oriented x 3. Labs Lab Laboratory Tests Test 01/12/19 08:00 01/12/19 11:52 01/12/19 17:32 01/12/19 20:17 Glucose (Fingerstick) 217 mg/dL (70-99) 238 mg/dL (70-99) 180 mg/dL (70-99) 155 mg/dL (70-99) Test 01/13/19 03:40 White Blood Count 6.5 x10^3/uL (4.0-11.0) Red Blood Count 4.98 x10^6/uL (4.30-5.70) Hemoglobin 14.3 g/dL (13.0-17.5) Hematocrit 41.8 % (39.0-53.0) Mean Corpuscular Volume 84 fL (79-100) Mean Corpuscular Hemoglobin 29 pg (25-35) Mean Corpuscular Hemoglobin Concent 34 g/dL (31-37) Red Cell Distribution Width 13.4 % (11.5-14.5) Platelet Count 82 x10^3/uL (140-400) Neutrophils (%) (Auto) 75 % (31-73) Lymphocytes (%) (Auto) 13 % (24-48) Monocytes (%) (Auto) 11 % (0-9) Eosinophils (%) (Auto) 1 % (0-3) Basophils (%) (Auto) 0 % (0-3) Neutrophils # (Auto) 4.9 x10^3/uL (1.8-7.7) Lymphocytes # (Auto) 0.8 x10^3/uL (1.0-4.8) Monocytes # (Auto) 0.7 x10^3/uL (0.0-1.1) Eosinophils # (Auto) 0.0 x10^3/uL (0.0-0.7) Basophils # (Auto) 0.0 x10^3/uL (0.0-0.2) Prothrombin Time 13.1 SEC (11.7-14.0) Prothromb Time International Ratio 1.0 (0.8-1.1) Sodium Level 137 mmol/L (136-145) Potassium Level 3.6 mmol/L (3.5-5.1) Chloride Level 100 mmol/L (98-107) Carbon Dioxide Level 30 mmol/L (21-32) Anion Gap 7 (6-14) Blood Urea Nitrogen 11 mg/dL (8-26) Creatinine 1.3 mg/dL (0.7-1.3) Estimated GFR (Cockcroft-Gault) 68.4 BUN/Creatinine Ratio 8 (6-20) Glucose Level 224 mg/dL (70-99) Calcium Level 9.0 mg/dL (8.5-10.1) Total Bilirubin 1.2 mg/dL (0.2-1.0) Aspartate Amino Transf (AST/SGOT) 75 U/L (15-37) Alanine Aminotransferase (ALT/SGPT) 224 U/L (16-63) Alkaline Phosphatase 94 U/L (46-116) Total Protein 6.4 g/dL (6.4-8.2) Albumin 2.8 g/dL (3.4-5.0) Albumin/Globulin Ratio 0.8 (1.0-1.7) Micro Microbiology 01/10/19 Urine Culture - Final, Complete 01/10/19 Urine Culture Result 1 (JAMES) - Final, Complete 01/10/19 Blood Culture - Final, Complete Objective Assessment GNR sepsis with hypotension, POA 01/10 Immunosuppression secondary to liver transplant, 2012 Lactic acidosis MARK - improved Elevated LFTs - some better Ulcerative colitis, s/p colonoscopy, now on Lialda and Uceris DM II Thrombocytopenia - better Plan Plan of Care improving Changed abx to meropenem 01/12 sec to feeling ill and appearance Awaiting ID/susceptibilities of GNR Usually gets yearly flu and pneumo shots in Nov. Continue to monitor labs values D/w nursing D/w D/w [facility] this am OLVIN MENDIOLA MD Jan 13, 2019 07:52
[2019-01-13] MEDS: oxyCODONE IR 5 MG TABLET PO PRN (07:57)
[2019-01-13] MEDS: TACROLIMUS 0.5 MG CAPSULE PO SCH ×2 (08:02→20:52)
[2019-01-13] MEDS: PSYLLIUM HUSK (SUGAR FREE) 1 PKT PACKET PO SCH (08:02)
[2019-01-13] MEDS: MYCOPHENOLATE MOFETIL 250 MG CAPSULE. PO SCH (08:02)
[2019-01-13] MEDS: amLODIPine BESYLATE 10 MG TABLET PO SCH (08:03)
[2019-01-13] MEDS: ASPIRIN ENTERIC COATED 81 MG TABLET.DR. PO SCH (08:03)
[2019-01-13] MEDS: MULTIVITAMIN with MINERAL TABLET. PO SCH (08:03)
[2019-01-13] MEDS: INSULIN LISPRO 300 UNITS/3 ML VIAL. SQ SCH ×3 (08:14→17:36)
[2019-01-13] MEDS: INSULIN GLARGINE SYRINGE. SQ SCH (08:45)
--- NOTE | 2019-01-13 10:34 | PDOC ---
Renal-Progress Notes Subjective Notes Notes FEELS WELL History of Present Illness Hx of present illness STABLE Vitals Vitals Vital Signs Date Time Temp Pulse Resp B/P (MAP) Pulse Ox O2 Delivery O2 Flow Rate FiO2 01/13/19 08:55 18 90 Room Air 01/13/19 08:03 77 105/56 01/13/19 08:00 91.0 01/13/19 07:25 98.7 98.7 Weight Weight [ ] I.O. Intake and Output Intake and Output 01/13/19 07:00 Intake Total 890 ml Output Total 3150 ml Balance -2260 ml Intake Oral 840 ml IV Total 50 ml Output Urine Total 3150 ml Labs Labs Laboratory Tests Test 01/12/19 11:52 01/12/19 17:32 01/12/19 20:17 01/13/19 03:40 Glucose (Fingerstick) 238 mg/dL (70-99) 180 mg/dL (70-99) 155 mg/dL (70-99) White Blood Count 6.5 x10^3/uL (4.0-11.0) Red Blood Count 4.98 x10^6/uL (4.30-5.70) Hemoglobin 14.3 g/dL (13.0-17.5) Hematocrit 41.8 % (39.0-53.0) Mean Corpuscular Volume 84 fL (79-100) Mean Corpuscular Hemoglobin 29 pg (25-35) Mean Corpuscular Hemoglobin Concent 34 g/dL (31-37) Red Cell Distribution Width 13.4 % (11.5-14.5) Platelet Count 82 x10^3/uL (140-400) Neutrophils (%) (Auto) 75 % (31-73) Lymphocytes (%) (Auto) 13 % (24-48) Monocytes (%) (Auto) 11 % (0-9) Eosinophils (%) (Auto) 1 % (0-3) Basophils (%) (Auto) 0 % (0-3) Neutrophils # (Auto) 4.9 x10^3/uL (1.8-7.7) Lymphocytes # (Auto) 0.8 x10^3/uL (1.0-4.8) Monocytes # (Auto) 0.7 x10^3/uL (0.0-1.1) Eosinophils # (Auto) 0.0 x10^3/uL (0.0-0.7) Basophils # (Auto) 0.0 x10^3/uL (0.0-0.2) Prothrombin Time 13.1 SEC (11.7-14.0) Prothromb Time International Ratio 1.0 (0.8-1.1) Sodium Level 137 mmol/L (136-145) Potassium Level 3.6 mmol/L (3.5-5.1) Chloride Level 100 mmol/L (98-107) Carbon Dioxide Level 30 mmol/L (21-32) Anion Gap 7 (6-14) Blood Urea Nitrogen 11 mg/dL (8-26) Creatinine 1.3 mg/dL (0.7-1.3) Estimated GFR (Cockcroft-Gault) 68.4 BUN/Creatinine Ratio 8 (6-20) Glucose Level 224 mg/dL (70-99) Calcium Level 9.0 mg/dL (8.5-10.1) Total Bilirubin 1.2 mg/dL (0.2-1.0) Aspartate Amino Transf (AST/SGOT) 75 U/L (15-37) Alanine Aminotransferase (ALT/SGPT) 224 U/L (16-63) Alkaline Phosphatase 94 U/L (46-116) Total Protein 6.4 g/dL (6.4-8.2) Albumin 2.8 g/dL (3.4-5.0) Albumin/Globulin Ratio 0.8 (1.0-1.7) Test 01/13/19 07:57 Glucose (Fingerstick) 163 mg/dL (70-99) Micro Micro Microbiology 01/10/19 Urine Culture - Final, Complete 01/10/19 Urine Culture Result 1 (JAMES) - Final, Complete 01/10/19 Blood Culture - Final, Complete Review of Systems Constitutional: yes: weakness, alert, oriented Ears/Nose/Throat: Yes: no symptom reported Eyes: Yes: no symptom reported Pulmonary: Yes no symptom reported Cardiovascular: Yes no symptom reported Gastrointestional: Yes: diarrhea Genitourinary: Yes: no symptom reported Musculoskeletal: Yes: no symptom reported Skin: Yes no symptom reported Psychiatric/Neurological: Yes: no symptom reported Endocrine: Yes: no symptom reported Hematologic/Lymphatic: Yes: no symptom reported Physical Exam General Appearance: no apparent distress Skin: warm Heart: S1S2, RRR Abdomen: soft, bowel sounds present Genitourinary: bladder flat Extremities: pulses present Neurology: alert, oriented Assessment Assessment IMP MARK-RESOLVED GNR SEPSIS CHRONIC IMMUNOSUPPRESSION S/P ORTHOTIC LIVER TRANSPLANT 2013 ULCERATIVE COLITIS THROMBOCYTOPENIA DM II PLAN ANTIBIOTICS CONT SAME CONT TACROLIMUS AND CELLCEPT WILL FOLLOW UPDATED FAMILY HELEN GALLEGOS MD Jan 13, 2019 10:34
[2019-01-13 11:00] VITALS: BP 108/61
--- NOTE | 2019-01-13 12:10 | PDOC ---
G I PROGRESS NOTE Subjective No real complaints today. Objective Says had bile duct investigation after last episode of this in 2013. Physical Exam Lungs clear. RRR Abdomen soft, not tender nor distended. Review of Relevant I have reviewed the following items markell (where applicable) has been applied. Labs Laboratory Tests Test 01/11/19 16:42 01/11/19 21:43 01/12/19 04:39 01/12/19 08:00 Glucose (Fingerstick) 201 mg/dL (70-99) 155 mg/dL (70-99) 217 mg/dL (70-99) White Blood Count 5.6 x10^3/uL (4.0-11.0) Red Blood Count 5.00 x10^6/uL (4.30-5.70) Hemoglobin 14.4 g/dL (13.0-17.5) Hematocrit 42.0 % (39.0-53.0) Mean Corpuscular Volume 84 fL (79-100) Mean Corpuscular Hemoglobin 29 pg (25-35) Mean Corpuscular Hemoglobin Concent 34 g/dL (31-37) Red Cell Distribution Width 14.0 % (11.5-14.5) Platelet Count 70 x10^3/uL (140-400) Neutrophils (%) (Auto) 89 % (31-73) Lymphocytes (%) (Auto) 5 % (24-48) Monocytes (%) (Auto) 5 % (0-9) Eosinophils (%) (Auto) 1 % (0-3) Basophils (%) (Auto) 0 % (0-3) Neutrophils # (Auto) 5.0 x10^3/uL (1.8-7.7) Lymphocytes # (Auto) 0.3 x10^3/uL (1.0-4.8) Monocytes # (Auto) 0.3 x10^3/uL (0.0-1.1) Eosinophils # (Auto) 0.0 x10^3/uL (0.0-0.7) Basophils # (Auto) 0.0 x10^3/uL (0.0-0.2) Sodium Level 138 mmol/L (136-145) Potassium Level 3.8 mmol/L (3.5-5.1) Chloride Level 103 mmol/L (98-107) Carbon Dioxide Level 28 mmol/L (21-32) Anion Gap 7 (6-14) Blood Urea Nitrogen 13 mg/dL (8-26) Creatinine 1.3 mg/dL (0.7-1.3) Estimated GFR (Cockcroft-Gault) 68.4 BUN/Creatinine Ratio 10 (6-20) Glucose Level 221 mg/dL (70-99) Calcium Level 8.7 mg/dL (8.5-10.1) Total Bilirubin 1.4 mg/dL (0.2-1.0) Aspartate Amino Transf (AST/SGOT) 167 U/L (15-37) Alanine Aminotransferase (ALT/SGPT) 308 U/L (16-63) Alkaline Phosphatase 95 U/L (46-116) Creatine Kinase 202 U/L (39-308) Total Protein 6.3 g/dL (6.4-8.2) Albumin 2.9 g/dL (3.4-5.0) Albumin/Globulin Ratio 0.9 (1.0-1.7) Test 01/12/19 11:52 01/12/19 17:32 01/12/19 20:17 01/13/19 03:40 Glucose (Fingerstick) 238 mg/dL (70-99) 180 mg/dL (70-99) 155 mg/dL (70-99) White Blood Count 6.5 x10^3/uL (4.0-11.0) Red Blood Count 4.98 x10^6/uL (4.30-5.70) Hemoglobin 14.3 g/dL (13.0-17.5) Hematocrit 41.8 % (39.0-53.0) Mean Corpuscular Volume 84 fL (79-100) Mean Corpuscular Hemoglobin 29 pg (25-35) Mean Corpuscular Hemoglobin Concent 34 g/dL (31-37) Red Cell Distribution Width 13.4 % (11.5-14.5) Platelet Count 82 x10^3/uL (140-400) Neutrophils (%) (Auto) 75 % (31-73) Lymphocytes (%) (Auto) 13 % (24-48) Monocytes (%) (Auto) 11 % (0-9) Eosinophils (%) (Auto) 1 % (0-3) Basophils (%) (Auto) 0 % (0-3) Neutrophils # (Auto) 4.9 x10^3/uL (1.8-7.7) Lymphocytes # (Auto) 0.8 x10^3/uL (1.0-4.8) Monocytes # (Auto) 0.7 x10^3/uL (0.0-1.1) Eosinophils # (Auto) 0.0 x10^3/uL (0.0-0.7) Basophils # (Auto) 0.0 x10^3/uL (0.0-0.2) Prothrombin Time 13.1 SEC (11.7-14.0) Prothromb Time International Ratio 1.0 (0.8-1.1) Sodium Level 137 mmol/L (136-145) Potassium Level 3.6 mmol/L (3.5-5.1) Chloride Level 100 mmol/L (98-107) Carbon Dioxide Level 30 mmol/L (21-32) Anion Gap 7 (6-14) Blood Urea Nitrogen 11 mg/dL (8-26) Creatinine 1.3 mg/dL (0.7-1.3) Estimated GFR (Cockcroft-Gault) 68.4 BUN/Creatinine Ratio 8 (6-20) Glucose Level 224 mg/dL (70-99) Calcium Level 9.0 mg/dL (8.5-10.1) Total Bilirubin 1.2 mg/dL (0.2-1.0) Aspartate Amino Transf (AST/SGOT) 75 U/L (15-37) Alanine Aminotransferase (ALT/SGPT) 224 U/L (16-63) Alkaline Phosphatase 94 U/L (46-116) Total Protein 6.4 g/dL (6.4-8.2) Albumin 2.8 g/dL (3.4-5.0) Albumin/Globulin Ratio 0.8 (1.0-1.7) Test 01/13/19 07:57 01/13/19 11:30 Glucose (Fingerstick) 163 mg/dL (70-99) 215 mg/dL (70-99) Laboratory Tests Test 01/12/19 17:32 01/12/19 20:17 01/13/19 03:40 01/13/19 07:57 Glucose (Fingerstick) 180 mg/dL (70-99) 155 mg/dL (70-99) 163 mg/dL (70-99) White Blood Count 6.5 x10^3/uL (4.0-11.0) Red Blood Count 4.98 x10^6/uL (4.30-5.70) Hemoglobin 14.3 g/dL (13.0-17.5) Hematocrit 41.8 % (39.0-53.0) Mean Corpuscular Volume 84 fL (79-100) Mean Corpuscular Hemoglobin 29 pg (25-35) Mean Corpuscular Hemoglobin Concent 34 g/dL (31-37) Red Cell Distribution Width 13.4 % (11.5-14.5) Platelet Count 82 x10^3/uL (140-400) Neutrophils (%) (Auto) 75 % (31-73) Lymphocytes (%) (Auto) 13 % (24-48) Monocytes (%) (Auto) 11 % (0-9) Eosinophils (%) (Auto) 1 % (0-3) Basophils (%) (Auto) 0 % (0-3) Neutrophils # (Auto) 4.9 x10^3/uL (1.8-7.7) Lymphocytes # (Auto) 0.8 x10^3/uL (1.0-4.8) Monocytes # (Auto) 0.7 x10^3/uL (0.0-1.1) Eosinophils # (Auto) 0.0 x10^3/uL (0.0-0.7) Basophils # (Auto) 0.0 x10^3/uL (0.0-0.2) Prothrombin Time 13.1 SEC (11.7-14.0) Prothromb Time International Ratio 1.0 (0.8-1.1) Sodium Level 137 mmol/L (136-145) Potassium Level 3.6 mmol/L (3.5-5.1) Chloride Level 100 mmol/L (98-107) Carbon Dioxide Level 30 mmol/L (21-32) Anion Gap 7 (6-14) Blood Urea Nitrogen 11 mg/dL (8-26) Creatinine 1.3 mg/dL (0.7-1.3) Estimated GFR (Cockcroft-Gault) 68.4 BUN/Creatinine Ratio 8 (6-20) Glucose Level 224 mg/dL (70-99) Calcium Level 9.0 mg/dL (8.5-10.1) Total Bilirubin 1.2 mg/dL (0.2-1.0) Aspartate Amino Transf (AST/SGOT) 75 U/L (15-37) Alanine Aminotransferase (ALT/SGPT) 224 U/L (16-63) Alkaline Phosphatase 94 U/L (46-116) Total Protein 6.4 g/dL (6.4-8.2) Albumin 2.8 g/dL (3.4-5.0) Albumin/Globulin Ratio 0.8 (1.0-1.7) Test 01/13/19 11:30 Glucose (Fingerstick) 215 mg/dL (70-99) Microbiology 01/10/19 Urine Culture - Final, Complete 01/10/19 Urine Culture Result 1 (JAMES) - Final, Complete 01/10/19 Blood Culture - Final, Complete Vitals/I & O Vital Sign - Last 24 Hours 01/12/19 01/12/19 01/12/19 01/12/19 15:00 19:11 19:40 20:00 Temp 98.0 97.8 98.0 97.8 Pulse 73 83 Resp 20 16 B/P (MAP) 113/73 (86) 113/73 (86) Pulse Ox 92 95 95 O2 Delivery Room Air Room Air Room Air Room Air 01/12/19 01/12/19 01/13/19 01/13/19 20:40 22:56 00:09 00:39 Temp 97.6 97.6 Pulse 71 Resp 20 B/P (MAP) 129/86 (100) Pulse Ox 95 98 O2 Delivery Room Air Room Air Room Air Room Air 01/13/19 01/13/19 01/13/19 01/13/19 03:00 07:25 07:57 08:00 Temp 97.8 98.7 97.8 98.7 Pulse 72 77 Resp 16 18 18 B/P (MAP) 111/7 (41) 105/56 (72) Pulse Ox 93 90 O2 Delivery Room Air Room Air Room Air Room Air O2 Flow Rate 91.0 01/13/19 01/13/19 01/13/19 08:03 08:55 11:00 Temp 98.0 98.0 Pulse 77 74 Resp 18 18 B/P (MAP) 105/56 108/61 (77) Pulse Ox 90 90 O2 Delivery Room Air Room Air O2 Flow Rate 91.0 Intake and Output 01/12/19 01/12/19 01/13/19 15:00 23:00 07:00 Intake Total 240 ml 300 ml 350 ml Output Total 450 ml 2100 ml 600 ml Balance -210 ml -1800 ml -250 ml Problem List Problems Medical Problems: (1) Abdominal pain Status: Acute (2) MARK (acute kidney injury) Status: Acute (3) Hyperglycemia due to type 2 diabetes mellitus Status: Acute (4) Lactic acid acidosis Status: Acute (5) Renal insufficiency Status: Acute (6) Severe sepsis Status: Acute Assessment Syndrome most resembles ascending cholangitis; apparently possibility of biliary stricture was considered last time. Perhaps a stray bacterium wanders into the biliary tree from time to time. Chronic immunosuppression probably doesn't help. Plan of Care Note Continue antibiotics, etc. Await speciation of organism. Encouraged to f/u soonest with established GI/liver practitioners. SHILPA CHRIS MD Jan 13, 2019 12:10
--- NOTE | 2019-01-13 14:17 | PDOC ---
PROGRESS NOTES Chief Complaint Chief Complaint Sepsis Immunosuppression secondary to liver transplant nausea and vomtiing bacteremia, 2/4, gram neg rods acute transaminitis acute renal failure, ATN History of Present Illness History of Present Illness feels better, appetite better, no fever his prograf was decreased at direction of his key operator, follow progaf level, plan 3-5 ideal for now while septic. cont current Vitals Vitals Vital Signs Date Time Temp Pulse Resp B/P (MAP) Pulse Ox O2 Delivery O2 Flow Rate FiO2 01/13/19 11:00 98.0 74 18 108/61 (77) 90 Room Air 91.0 98.0 Physical Exam Physical Exam GENERAL: NAD/ coop -looks well HEENT: Pupils equally round and reactive. Oropharynx pink and moist. No lesions. NECK: Supple. LUNGS: Clear to auscultation. HEART: S1, S2. ABDOMEN: Soft and nontender with bowel sounds present. EXTREMITIES: No gross edema or cyanosis. SKIN: Warm to touch. No signs of rash. NEUROLOGIC: Awake and oriented x 3. General: Alert, Oriented X3, Cooperative, No acute distress Heart: Regular rate Lungs: Clear, Other Abdomen: Normal bowel sounds Extremities: No clubbing, No cyanosis, Normal pulses Skin: No rashes, No breakdown, No significant lesion Labs LABS Laboratory Tests Test 01/12/19 17:32 01/12/19 20:17 01/13/19 03:40 01/13/19 07:57 Glucose (Fingerstick) 180 mg/dL (70-99) 155 mg/dL (70-99) 163 mg/dL (70-99) White Blood Count 6.5 x10^3/uL (4.0-11.0) Red Blood Count 4.98 x10^6/uL (4.30-5.70) Hemoglobin 14.3 g/dL (13.0-17.5) Hematocrit 41.8 % (39.0-53.0) Mean Corpuscular Volume 84 fL (79-100) Mean Corpuscular Hemoglobin 29 pg (25-35) Mean Corpuscular Hemoglobin Concent 34 g/dL (31-37) Red Cell Distribution Width 13.4 % (11.5-14.5) Platelet Count 82 x10^3/uL (140-400) Neutrophils (%) (Auto) 75 % (31-73) Lymphocytes (%) (Auto) 13 % (24-48) Monocytes (%) (Auto) 11 % (0-9) Eosinophils (%) (Auto) 1 % (0-3) Basophils (%) (Auto) 0 % (0-3) Neutrophils # (Auto) 4.9 x10^3/uL (1.8-7.7) Lymphocytes # (Auto) 0.8 x10^3/uL (1.0-4.8) Monocytes # (Auto) 0.7 x10^3/uL (0.0-1.1) Eosinophils # (Auto) 0.0 x10^3/uL (0.0-0.7) Basophils # (Auto) 0.0 x10^3/uL (0.0-0.2) Prothrombin Time 13.1 SEC (11.7-14.0) Prothromb Time International Ratio 1.0 (0.8-1.1) Sodium Level 137 mmol/L (136-145) Potassium Level 3.6 mmol/L (3.5-5.1) Chloride Level 100 mmol/L (98-107) Carbon Dioxide Level 30 mmol/L (21-32) Anion Gap 7 (6-14) Blood Urea Nitrogen 11 mg/dL (8-26) Creatinine 1.3 mg/dL (0.7-1.3) Estimated GFR (Cockcroft-Gault) 68.4 BUN/Creatinine Ratio 8 (6-20) Glucose Level 224 mg/dL (70-99) Calcium Level 9.0 mg/dL (8.5-10.1) Total Bilirubin 1.2 mg/dL (0.2-1.0) Aspartate Amino Transf (AST/SGOT) 75 U/L (15-37) Alanine Aminotransferase (ALT/SGPT) 224 U/L (16-63) Alkaline Phosphatase 94 U/L (46-116) Total Protein 6.4 g/dL (6.4-8.2) Albumin 2.8 g/dL (3.4-5.0) Albumin/Globulin Ratio 0.8 (1.0-1.7) Test 01/13/19 11:30 Glucose (Fingerstick) 215 mg/dL (70-99) Assessment and Plan Assessmemt and Plan Problems Medical Problems: (1) Abdominal pain Status: Acute (2) MARK (acute kidney injury) Status: Acute (3) Hyperglycemia due to type 2 diabetes mellitus Status: Acute (4) Lactic acid acidosis Status: Acute (5) Renal insufficiency Status: Acute (6) Severe sepsis Status: Acute Comment Review of Relevant I have reviewed the following items markell (where applicable) has been applied. Labs Laboratory Tests Test 01/11/19 16:42 01/11/19 21:43 01/12/19 04:39 01/12/19 08:00 Glucose (Fingerstick) 201 mg/dL (70-99) 155 mg/dL (70-99) 217 mg/dL (70-99) White Blood Count 5.6 x10^3/uL (4.0-11.0) Red Blood Count 5.00 x10^6/uL (4.30-5.70) Hemoglobin 14.4 g/dL (13.0-17.5) Hematocrit 42.0 % (39.0-53.0) Mean Corpuscular Volume 84 fL (79-100) Mean Corpuscular Hemoglobin 29 pg (25-35) Mean Corpuscular Hemoglobin Concent 34 g/dL (31-37) Red Cell Distribution Width 14.0 % (11.5-14.5) Platelet Count 70 x10^3/uL (140-400) Neutrophils (%) (Auto) 89 % (31-73) Lymphocytes (%) (Auto) 5 % (24-48) Monocytes (%) (Auto) 5 % (0-9) Eosinophils (%) (Auto) 1 % (0-3) Basophils (%) (Auto) 0 % (0-3) Neutrophils # (Auto) 5.0 x10^3/uL (1.8-7.7) Lymphocytes # (Auto) 0.3 x10^3/uL (1.0-4.8) Monocytes # (Auto) 0.3 x10^3/uL (0.0-1.1) Eosinophils # (Auto) 0.0 x10^3/uL (0.0-0.7) Basophils # (Auto) 0.0 x10^3/uL (0.0-0.2) Sodium Level 138 mmol/L (136-145) Potassium Level 3.8 mmol/L (3.5-5.1) Chloride Level 103 mmol/L (98-107) Carbon Dioxide Level 28 mmol/L (21-32) Anion Gap 7 (6-14) Blood Urea Nitrogen 13 mg/dL (8-26) Creatinine 1.3 mg/dL (0.7-1.3) Estimated GFR (Cockcroft-Gault) 68.4 BUN/Creatinine Ratio 10 (6-20) Glucose Level 221 mg/dL (70-99) Calcium Level 8.7 mg/dL (8.5-10.1) Total Bilirubin 1.4 mg/dL (0.2-1.0) Aspartate Amino Transf (AST/SGOT) 167 U/L (15-37) Alanine Aminotransferase (ALT/SGPT) 308 U/L (16-63) Alkaline Phosphatase 95 U/L (46-116) Creatine Kinase 202 U/L (39-308) Total Protein 6.3 g/dL (6.4-8.2) Albumin 2.9 g/dL (3.4-5.0) Albumin/Globulin Ratio 0.9 (1.0-1.7) Tacrolimus (Prograf) Level See separate report Test 01/12/19 11:52 01/12/19 17:32 01/12/19 20:17 01/13/19 03:40 Glucose (Fingerstick) 238 mg/dL (70-99) 180 mg/dL (70-99) 155 mg/dL (70-99) White Blood Count 6.5 x10^3/uL (4.0-11.0) Red Blood Count 4.98 x10^6/uL (4.30-5.70) Hemoglobin 14.3 g/dL (13.0-17.5) Hematocrit 41.8 % (39.0-53.0) Mean Corpuscular Volume 84 fL (79-100) Mean Corpuscular Hemoglobin 29 pg (25-35) Mean Corpuscular Hemoglobin Concent 34 g/dL (31-37) Red Cell Distribution Width 13.4 % (11.5-14.5) Platelet Count 82 x10^3/uL (140-400) Neutrophils (%) (Auto) 75 % (31-73) Lymphocytes (%) (Auto) 13 % (24-48) Monocytes (%) (Auto) 11 % (0-9) Eosinophils (%) (Auto) 1 % (0-3) Basophils (%) (Auto) 0 % (0-3) Neutrophils # (Auto) 4.9 x10^3/uL (1.8-7.7) Lymphocytes # (Auto) 0.8 x10^3/uL (1.0-4.8) Monocytes # (Auto) 0.7 x10^3/uL (0.0-1.1) Eosinophils # (Auto) 0.0 x10^3/uL (0.0-0.7) Basophils # (Auto) 0.0 x10^3/uL (0.0-0.2) Prothrombin Time 13.1 SEC (11.7-14.0) Prothromb Time International Ratio 1.0 (0.8-1.1) Sodium Level 137 mmol/L (136-145) Potassium Level 3.6 mmol/L (3.5-5.1) Chloride Level 100 mmol/L (98-107) Carbon Dioxide Level 30 mmol/L (21-32) Anion Gap 7 (6-14) Blood Urea Nitrogen 11 mg/dL (8-26) Creatinine 1.3 mg/dL (0.7-1.3) Estimated GFR (Cockcroft-Gault) 68.4 BUN/Creatinine Ratio 8 (6-20) Glucose Level 224 mg/dL (70-99) Calcium Level 9.0 mg/dL (8.5-10.1) Total Bilirubin 1.2 mg/dL (0.2-1.0) Aspartate Amino Transf (AST/SGOT) 75 U/L (15-37) Alanine Aminotransferase (ALT/SGPT) 224 U/L (16-63) Alkaline Phosphatase 94 U/L (46-116) Total Protein 6.4 g/dL (6.4-8.2) Albumin 2.8 g/dL (3.4-5.0) Albumin/Globulin Ratio 0.8 (1.0-1.7) Test 01/13/19 07:57 01/13/19 11:30 Glucose (Fingerstick) 163 mg/dL (70-99) 215 mg/dL (70-99) Laboratory Tests Test 01/12/19 17:32 01/12/19 20:17 01/13/19 03:40 01/13/19 07:57 Glucose (Fingerstick) 180 mg/dL (70-99) 155 mg/dL (70-99) 163 mg/dL (70-99) White Blood Count 6.5 x10^3/uL (4.0-11.0) Red Blood Count 4.98 x10^6/uL (4.30-5.70) Hemoglobin 14.3 g/dL (13.0-17.5) Hematocrit 41.8 % (39.0-53.0) Mean Corpuscular Volume 84 fL (79-100) Mean Corpuscular Hemoglobin 29 pg (25-35) Mean Corpuscular Hemoglobin Concent 34 g/dL (31-37) Red Cell Distribution Width 13.4 % (11.5-14.5) Platelet Count 82 x10^3/uL (140-400) Neutrophils (%) (Auto) 75 % (31-73) Lymphocytes (%) (Auto) 13 % (24-48) Monocytes (%) (Auto) 11 % (0-9) Eosinophils (%) (Auto) 1 % (0-3) Basophils (%) (Auto) 0 % (0-3) Neutrophils # (Auto) 4.9 x10^3/uL (1.8-7.7) Lymphocytes # (Auto) 0.8 x10^3/uL (1.0-4.8) Monocytes # (Auto) 0.7 x10^3/uL (0.0-1.1) Eosinophils # (Auto) 0.0 x10^3/uL (0.0-0.7) Basophils # (Auto) 0.0 x10^3/uL (0.0-0.2) Prothrombin Time 13.1 SEC (11.7-14.0) Prothromb Time International Ratio 1.0 (0.8-1.1) Sodium Level 137 mmol/L (136-145) Potassium Level 3.6 mmol/L (3.5-5.1) Chloride Level 100 mmol/L (98-107) Carbon Dioxide Level 30 mmol/L (21-32) Anion Gap 7 (6-14) Blood Urea Nitrogen 11 mg/dL (8-26) Creatinine 1.3 mg/dL (0.7-1.3) Estimated GFR (Cockcroft-Gault) 68.4 BUN/Creatinine Ratio 8 (6-20) Glucose Level 224 mg/dL (70-99) Calcium Level 9.0 mg/dL (8.5-10.1) Total Bilirubin 1.2 mg/dL (0.2-1.0) Aspartate Amino Transf (AST/SGOT) 75 U/L (15-37) Alanine Aminotransferase (ALT/SGPT) 224 U/L (16-63) Alkaline Phosphatase 94 U/L (46-116) Total Protein 6.4 g/dL (6.4-8.2) Albumin 2.8 g/dL (3.4-5.0) Albumin/Globulin Ratio 0.8 (1.0-1.7) Test 01/13/19 11:30 Glucose (Fingerstick) 215 mg/dL (70-99) Microbiology 01/10/19 Urine Culture - Final, Complete 01/10/19 Urine Culture Result 1 (JAMES) - Final, Complete 01/10/19 Blood Culture - Final, Complete Medications Current Medications Sodium Chloride 500 ml @ 500 mls/hr 1X ONCE IV Last administered on 01/10/19at 16:29; Start 01/10/19 at 16:30; Stop 01/10/19 at 17:29; Status DC Fentanyl Citrate (Fentanyl 2ml Vial) 25 mcg 1X ONCE IV Last administered on 01/10/19at 17:21; Start 01/10/19 at 17:00; Stop 01/10/19 at 17:01; Status DC Ondansetron HCl (Zofran) 4 mg 1X ONCE IVP Last administered on 01/10/19at 17:20; Start 01/10/19 at 17:00; Stop 01/10/19 at 17:01; Status DC Acetaminophen (Tylenol) 1,000 mg 1X ONCE PO Last administered on 01/10/19at 18:35; Start 01/10/19 at 18:15; Stop 01/10/19 at 18:19; Status DC Piperacillin Sod/ Tazobactam Sod 4.5 gm/Sodium Chloride 100 ml @ 200 mls/hr 1X ONCE IV Last administered on 01/10/19 18:39; Start 01/10/19 at 18:15; Stop 01/10/19 at 18:44; Status DC Vancomycin HCl (Vanco Per Pharmacy) 1 each PRN DAILY PRN MC SEE COMMENTS Last administered on 01/10/19at 20:10; Start 01/10/19 at 18:15; Stop 01/11/19 at 07:57; Status DC Sodium Chloride 1,000 ml @ 1,000 mls/hr 1X ONCE IV Last administered on 01/10/19at 18:39; Start 01/10/19 at 18:30; Stop 01/10/19 at 19:29; Status DC Vancomycin HCl 1.5 gm/Sodium Chloride 500 ml @ 250 mls/hr 1X ONCE IV Last administered on 01/10/19at 18:43; Start 01/10/19 at 18:30; Stop 01/10/19 at 20:29; Status DC Ondansetron HCl (Zofran) 4 mg PRN Q8HRS PRN IV NAUSEA/VOMITING; Start 01/10/19 at 19:45; Stop 01/11/19 at 19:44; Status DC Fentanyl Citrate (Fentanyl 2ml Vial) 50 mcg PRN Q1HR PRN IV PAIN Last administered on 01/11/19at 12:50; Start 01/10/19 at 19:45; Stop 01/11/19 at 19:44; Status DC Vancomycin HCl 1.5 gm/Sodium Chloride 500 ml @ 250 mls/hr Q24H IV ; Start 01/11/19 at 18:00; Stop 01/11/19 at 07:57; Status DC Vancomycin HCl (Vancomycin Trough Level) 1 each 1X ONCE MC ; Start 01/12/19 at 17:30; Stop 01/12/19 at 17:31; Status Cancel Quinine Sulfate (Qualaquin) 324 mg PRN Q8HRS PRN PO MUSCLE CRAMPS Last administered on 01/10/19at 23:37; Start 01/10/19 at 23:15 Alprazolam (Xanax) 0.5 mg PRN Q6HRS PRN PO ANXIETY / AGITATION; Start 01/10/19 at 23:45 Amlodipine Besylate (Norvasc) 10 mg DAILY PO Last administered on 01/13/19at 08:03; Start 01/11/19 at 09:00 Aspirin (Ecotrin) 81 mg DAILYWBKFT PO Last administered on 01/13/19at 08:03; Start 01/11/19 at 08:00 Insulin Human Regular (HumuLIN R VIAL) 100 unit DAILYAC SQ ; Start 01/11/19 at 07:30; Status UNV Tacrolimus (Prograf) 2 mg DAILY16 PO ; Start 01/11/19 at 16:00; Stop 01/11/19 at 16:09; Status DC Tacrolimus (Prograf) 3 mg DAILY05 PO Last administered on 01/11/19at 05:52; Start 01/11/19 at 05:00; Stop 01/11/19 at 06:09; Status DC Non-Formulary Medication (Insulin Detemir (Levemir)) 32 unit HS SQ ; Start 01/11/19 at 21:00; Status UNV Multivitamins (Thera M Plus) 1 tab DAILY PO Last administered on 01/13/19at 08:03; Start 01/11/19 at 09:00 Mycophenolate Mofetil (Cellcept) 500 mg DAILY PO Last administered on 01/13/19at 08:02; Start 01/11/19 at 09:00 Zolpidem Tartrate (Ambien) 5 mg PRN QHS PRN PO INSOMNIA,MRX1 PRN; Start 01/10/19 at 23:45 Insulin Human Lispro (HumaLOG) 0-9 UNITS TIDWMEALS SQ Last administered on 01/13/19at 12:35; Start 01/11/19 at 08:00 Dextrose (Dextrose 50%-Water Syringe) 12.5 gm PRN Q15MIN PRN IV SEE COMMENTS; Start 01/10/19 at 23:45 Insulin Glargine (Lantus Syringe) 32 unit QHS SQ Last administered on 01/12/19at 20:39; Start 01/11/19 at 21:00; Stop 01/13/19 at 08:39; Status DC Tacrolimus (Prograf) 3 mg DAILY08 PO Last administered on 01/12/19at 08:25; Start 01/12/19 at 08:00; Stop 01/12/19 at 10:11; Status DC Piperacillin Sod/ Tazobactam Sod (Zosyn Per Pharmacy) 1 each PRN DAILY PRN MC SEE COMMENTS; Start 01/11/19 at 08:00; Stop 01/11/19 at 09:03; Status DC Piperacillin Sod/ Tazobactam Sod 3.375 gm/Sodium Chloride 50 ml @ 100 mls/hr Q6HRS IV ; Start 01/11/19 at 08:30; Stop 01/11/19 at 09:03; Status DC Piperacillin Sod/ Tazobactam Sod 2.25 gm/Sodium Chloride 50 ml @ 100 mls/hr Q8HRS IV Last administered on 01/12/19 06:35; Start 01/11/19 at 14:00; Stop 01/12/19 at 09:15; Status DC Sodium Chloride 500 ml @ 500 mls/hr 1X ONCE IV Last administered on 01/11/19 12:10; Start 01/11/19 at 12:00; Stop 01/11/19 at 12:59; Status DC Tacrolimus (Prograf) 2 mg HS PO Last administered on 01/12/19 20:36; Start 01/11/19 at 21:00 Acetaminophen (Tylenol) 650 mg PRN Q6HRS PRN PO headache Last administered on 01/12/19 10:37; Start 01/11/19 at 22:15 Insulin Human Lispro (HumaLOG) 6 units 1X SQ ; Start 01/11/19 at 22:15; Stop 01/11/19 at 22:40; Status DC Fentanyl Citrate (Fentanyl 2ml Vial) 50 mcg PRN Q4HRS PRN IVP PAIN Last administered on 01/13/19 00:09; Start 01/11/19 at 22:30 Polyethylene Glycol (miraLAX PACKET) 17 gm QHS PO Last administered on 01/11/19 22:38; Start 01/11/19 at 22:45 Psyllium Hydrophilic Mucilloid (Metamucil Fiber Packet) 1 pkt QHS PO Last administered on 01/13/19 08:02; Start 01/11/19 at 22:45 Lactulose (Lactulose) 20 gm PRN DAILY PRN PO CONSTIPATION; Start 01/11/19 at 22:30 Insulin Human Lispro (HumaLOG) 6 units 1X ONCE SQ Last administered on 01/11/19 22:50; Start 01/11/19 at 22:45; Stop 01/11/19 at 22:46; Status DC Ondansetron HCl (Zofran) 4 mg PRN Q6HRS PRN IVP NAUSEA/VOMITING Last administered on 01/12/19 02:00; Start 01/12/19 at 01:45 Meropenem 500 mg/ Sodium Chloride 50 ml @ 100 mls/hr Q6HRS IV Last administered on 01/13/19at 12:29; Start 01/12/19 at 12:00 Oxycodone HCl (Roxicodone) 5 mg PRN Q6HRS PRN PO PAIN Last administered on 01/13/19at 07:57; Start 01/12/19 at 10:00 Tacrolimus (Prograf) 2 mg DAILY08 PO Last administered on 01/13/19at 08:02; Start 01/12/19 at 10:15 Insulin Human Lispro (HumaLOG) 6 units 1X SQ ; Start 01/12/19 at 20:30; Stop 01/12/19 at 20:41; Status DC Insulin Human Lispro (HumaLOG) 6 units 1X SQ ; Start 01/12/19 at 20:45 Insulin Glargine (Lantus Syringe) 15 unit QHS SQ ; Start 01/13/19 at 21:00 Insulin Glargine (Lantus Syringe) 15 unit DAILYWBKFT SQ Last administered on 01/13/19at 08:45; Start 01/13/19 at 08:45 Active Scripts Active Reported Multivitamins (Multivitamin) 1 Each Tablet 1 Tab PO DAILY Alprazolam 0.5 Mg Tablet 0.5 Mg PO PRN Q6HRS PRN Humalog (Insulin Lispro) 100 Unit/1 Ml Vial 100 Unit SQ DAILYAC Levemir (Insulin Detemir) 100 Unit/1 Ml Vial 32 Unit SQ HS Amlodipine Besylate 10 Mg Tablet 10 Mg PO DAILY Lo-Dose Aspirin EC (Aspirin) 81 Mg Tablet.dr 81 Mg PO DAILY Zolpidem Tartrate 10 Mg Tablet 10 Mg PO PRN QHS PRN Prograf (Tacrolimus) 1 Mg Capsule 2 Cap PO DAILY16 Prograf (Tacrolimus) 1 Mg Capsule 3 Cap PO DAILY05 Cellcept (Mycophenolate Mofetil) 500 Mg Tablet 500 Mg PO DAILY Vitals/I & O Vital Sign - Last 24 Hours 01/12/19 01/12/19 01/12/19 01/12/19 15:00 19:11 19:40 20:00 Temp 98.0 97.8 98.0 97.8 Pulse 73 83 Resp 20 16 B/P (MAP) 113/73 (86) 113/73 (86) Pulse Ox 92 95 95 O2 Delivery Room Air Room Air Room Air Room Air 01/12/19 01/12/19 01/13/19 01/13/19 20:40 22:56 00:09 00:39 Temp 97.6 97.6 Pulse 71 Resp 20 B/P (MAP) 129/86 (100) Pulse Ox 95 98 O2 Delivery Room Air Room Air Room Air Room Air 01/13/19 01/13/19 01/13/19 01/13/19 03:00 07:25 07:57 08:00 Temp 97.8 98.7 97.8 98.7 Pulse 72 77 Resp 16 18 18 B/P (MAP) 111/7 (41) 105/56 (72) Pulse Ox 93 90 O2 Delivery Room Air Room Air Room Air Room Air O2 Flow Rate 91.0 01/13/19 01/13/19 01/13/19 08:03 08:55 11:00 Temp 98.0 98.0 Pulse 77 74 Resp 18 18 B/P (MAP) 105/56 108/61 (77) Pulse Ox 90 90 O2 Delivery Room Air Room Air O2 Flow Rate 91.0 Intake and Output 01/12/19 01/12/19 01/13/19 15:00 23:00 07:00 Intake Total 240 ml 300 ml 350 ml Output Total 450 ml 2100 ml 600 ml Balance -210 ml -1800 ml -250 ml CLOVER SELBY MD Jan 13, 2019 14:17
[2019-01-13 15:00] VITALS: BP 111/65
[2019-01-13 19:00] VITALS: BP 115/71
[2019-01-13] MEDS ORDERED: INSULIN GLARGINE SYRINGE. SQ SCH (21:00)
[2019-01-13] MEDS: POLYETHYLENE GLYCOL 3350 17 GM PACKET. PO SCH (21:00)
[2019-01-13 22:37] VITALS: BP 133/84
[2019-01-14 03:00] VITALS: BP 114/71
[2019-01-14 05:31] LABS: CALCIUM 9.5 mg/dL (8.5-10.1); CREATININE 1.2 mg/dL (0.7-1.3); MAGNESIUM 1.5 mg/dL (1.8-2.4); POTASSIUM 4.4 mmol/L (3.5-5.1)
[2019-01-14 07:00] VITALS: BP 110/72
[2019-01-14] MEDS: MEROPENEM 500 MG in IV NORMAL SALINE 50ML 50 ML IV SCH ×2 (07:10→11:07)
[2019-01-14] MEDS: MULTIVITAMIN with MINERAL TABLET. PO SCH (08:17)
[2019-01-14] MEDS: TACROLIMUS 0.5 MG CAPSULE PO SCH (08:17)
[2019-01-14] MEDS: MYCOPHENOLATE MOFETIL 250 MG CAPSULE. PO SCH (08:17)
[2019-01-14] MEDS: ASPIRIN ENTERIC COATED 81 MG TABLET.DR. PO SCH (08:17)
[2019-01-14] MEDS: amLODIPine BESYLATE 10 MG TABLET PO SCH (08:17)
[2019-01-14] MEDS: INSULIN LISPRO 300 UNITS/3 ML VIAL. SQ SCH ×2 (08:26→13:16)
[2019-01-14] MEDS: oxyCODONE IR 5 MG TABLET PO PRN (08:29)
[2019-01-14] MEDS: INSULIN GLARGINE SYRINGE. SQ SCH (08:44)
[2019-01-14 08:58] LABS: ALT (SGPT) 153 U/L (16-63); AST (SGOT) 36 U/L (15-37)
--- NOTE | 2019-01-14 09:21 | PDOC ---
Infectious Disease Note Subjective Subjective Mild headache otherwise feels good Walking some in room and stretching + sweats at night, but not unusual Fever and shakes have settled down h/o kidney issues in the past Recalls having some left kidney pain last week Vital Sign Vital Signs Vital Signs Date Time Temp Pulse Resp B/P (MAP) Pulse Ox O2 Delivery O2 Flow Rate FiO2 01/14/19 08:29 18 Room Air 01/14/19 08:17 75 114/71 01/14/19 03:00 98.5 97 98.5 01/13/19 15:00 91.0 Physical Exam PHYSICAL EXAM GENERAL: NAD/ coop -looks well HEENT: Pupils equally round and reactive. Oropharynx pink and moist. No lesions. NECK: Supple. LUNGS: Clear to auscultation. HEART: S1, S2. ABDOMEN: Soft and nontender with bowel sounds present. EXTREMITIES: No gross edema or cyanosis. SKIN: Warm to touch. No signs of rash. NEUROLOGIC: Awake and oriented x 3. Labs Lab Laboratory Tests Test 01/13/19 11:30 01/13/19 17:31 01/13/19 20:40 01/14/19 04:50 Glucose (Fingerstick) 215 mg/dL (70-99) 199 mg/dL (70-99) 138 mg/dL (70-99) Sodium Level 139 mmol/L (136-145) Potassium Level 4.4 mmol/L (3.5-5.1) Chloride Level 103 mmol/L (98-107) Carbon Dioxide Level 28 mmol/L (21-32) Anion Gap 8 (6-14) Blood Urea Nitrogen 15 mg/dL (8-26) Creatinine 1.2 mg/dL (0.7-1.3) Estimated GFR (Cockcroft-Gault) 75.0 Glucose Level 287 mg/dL (70-99) Calcium Level 9.5 mg/dL (8.5-10.1) Magnesium Level 1.5 mg/dL (1.8-2.4) Aspartate Amino Transf (AST/SGOT) 36 U/L (15-37) Alanine Aminotransferase (ALT/SGPT) 153 U/L (16-63) Test 01/14/19 08:10 Glucose (Fingerstick) 212 mg/dL (70-99) Micro 10/2. BLD CULT RESULT 1 Final Gram negative rods Escherichia coli MICS are expressed in micrograms per mL Antibiotic RSLT#1 Amoxicillin/Clavulanic Acid S =8 Ampicillin R>=32 Cefepime S<=0.12 Ceftriaxone S<=0.25 Cefuroxime S =4 Ciprofloxacin S<=0.25 Ertapenem S<=0.12 Gentamicin S<=1 Imipenem S<=0.25 Levofloxacin S<=0.12 Meropenem S<=0.25 Nitrofurantoin S<=16 Piperacillin/Tazobactam S<=4 Tetracycline S<=1 Tobramycin S<=1 Trimethoprim/Sulfa S<=20 01/10. URINE CULTURE RES 1 Final No growth Objective Assessment GNR sepsis with hypotension, POA 01/10 E. coli (R-amp) Immunosuppression secondary to liver transplant, 2012 Lactic acidosis - better MARK - improved Elevated LFTs - improving Ulcerative colitis, s/p colonoscopy, now on Lialda and Uceris DM II Thrombocytopenia Plan Plan of Care improving Changed abx to meropenem 01/12 sec to feeling ill and appearance Usually gets yearly flu and pneumo shots in Feb. Continue to monitor labs values Improving will dose Rocephin times one Home with Cipro but 500 mg po BID with h/o MARK for 7 days to start 01/15. That will provide him enough to get home and f/u. He has tolerated Cipro in the past with Prostatis treatment F/u with primary in [place] D/ Nursing Attending Co-Sign Attending Co-Sign The patient was seen and interviewed as well as examined at the bedside. The chart was reviewed. The case was discussed. Agree with the plan of care. ROHAN CALDERON APRN Jan 14, 2019 09:21 OLVIN MENDIOLA MD Jan 14, 2019 12:55
--- NOTE | 2019-01-14 09:37 | PDOC ---
Renal-Progress Notes Subjective Notes Notes NOTHING NEW History of Present Illness Hx of present illness STABLE Vitals Vitals Vital Signs Date Time Temp Pulse Resp B/P (MAP) Pulse Ox O2 Delivery O2 Flow Rate FiO2 01/14/19 08:29 18 Room Air 01/14/19 08:17 75 114/71 01/14/19 07:00 97.8 96 97.8 01/13/19 15:00 91.0 Weight Weight [ ] I.O. Intake and Output Intake and Output 01/14/19 07:00 Intake Total 2350 ml Output Total 4200 ml Balance -1850 ml Intake Oral 2300 ml IV Total 50 ml Output Urine Total 4200 ml # Voids 1 Labs Labs Laboratory Tests Test 01/13/19 11:30 01/13/19 17:31 01/13/19 20:40 01/14/19 04:50 Glucose (Fingerstick) 215 mg/dL (70-99) 199 mg/dL (70-99) 138 mg/dL (70-99) Sodium Level 139 mmol/L (136-145) Potassium Level 4.4 mmol/L (3.5-5.1) Chloride Level 103 mmol/L (98-107) Carbon Dioxide Level 28 mmol/L (21-32) Anion Gap 8 (6-14) Blood Urea Nitrogen 15 mg/dL (8-26) Creatinine 1.2 mg/dL (0.7-1.3) Estimated GFR (Cockcroft-Gault) 75.0 Glucose Level 287 mg/dL (70-99) Calcium Level 9.5 mg/dL (8.5-10.1) Magnesium Level 1.5 mg/dL (1.8-2.4) Aspartate Amino Transf (AST/SGOT) 36 U/L (15-37) Alanine Aminotransferase (ALT/SGPT) 153 U/L (16-63) Test 01/14/19 08:10 Glucose (Fingerstick) 212 mg/dL (70-99) Micro Micro Microbiology 01/10/19 Urine Culture - Final, Complete 01/10/19 Urine Culture Result 1 (JAMES) - Final, Complete 01/10/19 Blood Culture - Final, Complete Review of Systems Constitutional: yes: weakness, alert, oriented Ears/Nose/Throat: Yes: no symptom reported Eyes: Yes: no symptom reported Pulmonary: Yes no symptom reported Cardiovascular: Yes no symptom reported Gastrointestional: Yes: diarrhea Genitourinary: Yes: no symptom reported Musculoskeletal: Yes: no symptom reported Skin: Yes no symptom reported Psychiatric/Neurological: Yes: no symptom reported Endocrine: Yes: no symptom reported Hematologic/Lymphatic: Yes: no symptom reported Physical Exam General Appearance: no apparent distress Skin: warm Heart: S1S2, RRR Abdomen: soft, bowel sounds present Genitourinary: bladder flat Extremities: pulses present Neurology: alert, oriented Assessment Assessment IMP MARK-RESOLVED WITH CR OF 1.2 GNR SEPSIS CHRONIC IMMUNOSUPPRESSION S/P ORTHOTIC LIVER TRANSPLANT 2013 ULCERATIVE COLITIS THROMBOCYTOPENIA DM II LOW MAG PLAN ANTIBIOTICS CONT SAME CONT TACROLIMUS AND CELLCEPT REPLACE MAG HELEN GALLEGOS MD Jan 14, 2019 09:37
[2019-01-14] MEDS ORDERED: MAGNESIUM SULFATE 2GM 50 ML IV ONE (10:00)
[2019-01-14 11:00] VITALS: BP 119/72
--- NOTE | 2019-01-14 11:03 | PDOC ---
PROGRESS NOTES Chief Complaint Chief Complaint Sepsis acute cholangitis, Immunosuppression secondary to liver transplant nausea and vomiting, resolved, bacteremia, 2/, e. 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 Oropharynx pink and moist. No lesions. NECK: Supple. LUNGS: Clear to auscultation. HEART: S1, S2. ABDOMEN: Soft and nontender with bowel sounds present. EXTREMITIES: No gross edema or cyanosis. SKIN: Warm to touch. No signs of rash. NEUROLOGIC: Awake and oriented x 3. General: Alert, Oriented X3, Cooperative, No acute distress Heart: Regular rate Lungs: Clear, Other Abdomen: Normal bowel sounds Extremities: No clubbing, No cyanosis, Normal pulses Skin: No rashes, No breakdown, No significant lesion Labs LABS Laboratory Tests Test 01/13/19 11:30 01/13/19 17:31 01/13/19 20:40 01/14/19 04:50 Glucose (Fingerstick) 215 mg/dL (70-99) 199 mg/dL (70-99) 138 mg/dL (70-99) Sodium Level 139 mmol/L (136-145) Potassium Level 4.4 mmol/L (3.5-5.1) Chloride Level 103 mmol/L (98-107) Carbon Dioxide Level 28 mmol/L (21-32) Anion Gap 8 (6-14) Blood Urea Nitrogen 15 mg/dL (8-26) Creatinine 1.2 mg/dL (0.7-1.3) Estimated GFR (Cockcroft-Gault) 75.0 Glucose Level 287 mg/dL (70-99) Calcium Level 9.5 mg/dL (8.5-10.1) Magnesium Level 1.5 mg/dL (1.8-2.4) Aspartate Amino Transf (AST/SGOT) 36 U/L (15-37) Alanine Aminotransferase (ALT/SGPT) 153 U/L (16-63) Test 01/14/19 08:10 Glucose (Fingerstick) 212 mg/dL (70-99) Assessment and Plan Assessmemt and Plan Problems Medical Problems: (1) Abdominal pain Status: Acute (2) MARK (acute kidney injury) Status: Acute (3) Hyperglycemia due to type 2 diabetes mellitus Status: Acute (4) Lactic acid acidosis Status: Acute (5) Renal insufficiency Status: Acute (6) Severe sepsis Status: Acute Comment Review of Relevant I have reviewed the following items markell (where applicable) has been applied. Labs Laboratory Tests Test 01/12/19 11:52 01/12/19 17:32 01/12/19 20:17 01/13/19 03:40 Glucose (Fingerstick) 238 mg/dL (70-99) 180 mg/dL (70-99) 155 mg/dL (70-99) White Blood Count 6.5 x10^3/uL (4.0-11.0) Red Blood Count 4.98 x10^6/uL (4.30-5.70) Hemoglobin 14.3 g/dL (13.0-17.5) Hematocrit 41.8 % (39.0-53.0) Mean Corpuscular Volume 84 fL (79-100) Mean Corpuscular Hemoglobin 29 pg (25-35) Mean Corpuscular Hemoglobin Concent 34 g/dL (31-37) Red Cell Distribution Width 13.4 % (11.5-14.5) Platelet Count 82 x10^3/uL (140-400) Neutrophils (%) (Auto) 75 % (31-73) Lymphocytes (%) (Auto) 13 % (24-48) Monocytes (%) (Auto) 11 % (0-9) Eosinophils (%) (Auto) 1 % (0-3) Basophils (%) (Auto) 0 % (0-3) Neutrophils # (Auto) 4.9 x10^3/uL (1.8-7.7) Lymphocytes # (Auto) 0.8 x10^3/uL (1.0-4.8) Monocytes # (Auto) 0.7 x10^3/uL (0.0-1.1) Eosinophils # (Auto) 0.0 x10^3/uL (0.0-0.7) Basophils # (Auto) 0.0 x10^3/uL (0.0-0.2) Prothrombin Time 13.1 SEC (11.7-14.0) Prothromb Time International Ratio 1.0 (0.8-1.1) Sodium Level 137 mmol/L (136-145) Potassium Level 3.6 mmol/L (3.5-5.1) Chloride Level 100 mmol/L (98-107) Carbon Dioxide Level 30 mmol/L (21-32) Anion Gap 7 (6-14) Blood Urea Nitrogen 11 mg/dL (8-26) Creatinine 1.3 mg/dL (0.7-1.3) Estimated GFR (Cockcroft-Gault) 68.4 BUN/Creatinine Ratio 8 (6-20) Glucose Level 224 mg/dL (70-99) Calcium Level 9.0 mg/dL (8.5-10.1) Total Bilirubin 1.2 mg/dL (0.2-1.0) Aspartate Amino Transf (AST/SGOT) 75 U/L (15-37) Alanine Aminotransferase (ALT/SGPT) 224 U/L (16-63) Alkaline Phosphatase 94 U/L (46-116) Total Protein 6.4 g/dL (6.4-8.2) Albumin 2.8 g/dL (3.4-5.0) Albumin/Globulin Ratio 0.8 (1.0-1.7) Tacrolimus (Prograf) Level See separate report Test 01/13/19 07:57 01/13/19 11:30 01/13/19 17:31 01/13/19 20:40 Glucose (Fingerstick) 163 mg/dL (70-99) 215 mg/dL (70-99) 199 mg/dL (70-99) 138 mg/dL (70-99) Test 01/14/19 04:50 01/14/19 08:10 Sodium Level 139 mmol/L (136-145) Potassium Level 4.4 mmol/L (3.5-5.1) Chloride Level 103 mmol/L (98-107) Carbon Dioxide Level 28 mmol/L (21-32) Anion Gap 8 (6-14) Blood Urea Nitrogen 15 mg/dL (8-26) Creatinine 1.2 mg/dL (0.7-1.3) Estimated GFR (Cockcroft-Gault) 75.0 Glucose Level 287 mg/dL (70-99) Calcium Level 9.5 mg/dL (8.5-10.1) Magnesium Level 1.5 mg/dL (1.8-2.4) Aspartate Amino Transf (AST/SGOT) 36 U/L (15-37) Alanine Aminotransferase (ALT/SGPT) 153 U/L (16-63) Glucose (Fingerstick) 212 mg/dL (70-99) Laboratory Tests Test 01/13/19 11:30 01/13/19 17:31 01/13/19 20:40 01/14/19 04:50 Glucose (Fingerstick) 215 mg/dL (70-99) 199 mg/dL (70-99) 138 mg/dL (70-99) Sodium Level 139 mmol/L (136-145) Potassium Level 4.4 mmol/L (3.5-5.1) Chloride Level 103 mmol/L (98-107) Carbon Dioxide Level 28 mmol/L (21-32) Anion Gap 8 (6-14) Blood Urea Nitrogen 15 mg/dL (8-26) Creatinine 1.2 mg/dL (0.7-1.3) Estimated GFR (Cockcroft-Gault) 75.0 Glucose Level 287 mg/dL (70-99) Calcium Level 9.5 mg/dL (8.5-10.1) Magnesium Level 1.5 mg/dL (1.8-2.4) Aspartate Amino Transf (AST/SGOT) 36 U/L (15-37) Alanine Aminotransferase (ALT/SGPT) 153 U/L (16-63) Test 01/14/19 08:10 Glucose (Fingerstick) 212 mg/dL (70-99) Microbiology 01/10/19 Urine Culture - Final, Complete 01/10/19 Urine Culture Result 1 (JAMES) - Final, Complete 01/10/19 Blood Culture - Final, Complete Medications Current Medications Sodium Chloride 500 ml @ 500 mls/hr 1X ONCE IV Last administered on 01/10/19 16:29; Start 01/10/19 at 16:30; Stop 01/10/19 at 17:29; Status DC Fentanyl Citrate (Fentanyl 2ml Vial) 25 mcg 1X ONCE IV Last administered on 01/10/19 17:21; Start 01/10/19 at 17:00; Stop 01/10/19 at 17:01; Status DC Ondansetron HCl (Zofran) 4 mg 1X ONCE IVP Last administered on 01/10/19 17:20; Start 01/10/19 at 17:00; Stop 01/10/19 at 17:01; Status DC Acetaminophen (Tylenol) 1,000 mg 1X ONCE PO Last administered on 01/10/19 18:35; Start 01/10/19 at 18:15; Stop 01/10/19 at 18:19; Status DC Piperacillin Sod/ Tazobactam Sod 4.5 gm/Sodium Chloride 100 ml @ 200 mls/hr 1X ONCE IV Last administered on 01/10/19 18:39; Start 01/10/19 at 18:15; Stop 01/10/19 at 18:44; Status DC Vancomycin HCl (Vanco Per Pharmacy) 1 each PRN DAILY PRN MC SEE COMMENTS Last administered on 01/10/19 20:10; Start 01/10/19 at 18:15; Stop 01/11/19 at 07:57; Status DC Sodium Chloride 1,000 ml @ 1,000 mls/hr 1X ONCE IV Last administered on 01/10/19 18:39; Start 01/10/19 at 18:30; Stop 01/10/19 at 19:29; Status DC Vancomycin HCl 1.5 gm/Sodium Chloride 500 ml @ 250 mls/hr 1X ONCE IV Last administered on 01/10/19 18:43; Start 01/10/19 at 18:30; Stop 01/10/19 at 20:29; Status DC Ondansetron HCl (Zofran) 4 mg PRN Q8HRS PRN IV NAUSEA/VOMITING; Start 01/10/19 at 19:45; Stop 01/11/19 at 19:44; Status DC Fentanyl Citrate (Fentanyl 2ml Vial) 50 mcg PRN Q1HR PRN IV PAIN Last administered on 10/3/19at 12:50; Start 01/10/19 at 19:45; Stop 01/11/19 at 19:44; Status DC Vancomycin HCl 1.5 gm/Sodium Chloride 500 ml @ 250 mls/hr Q24H IV ; Start 01/11/19 at 18:00; Stop 01/11/19 at 07:57; Status DC Vancomycin HCl (Vancomycin Trough Level) 1 each 1X ONCE MC ; Start 01/12/19 at 17:30; Stop 01/12/19 at 17:31; Status Cancel Quinine Sulfate (Qualaquin) 324 mg PRN Q8HRS PRN PO MUSCLE CRAMPS Last administered on 01/10/19at 23:37; Start 01/10/19 at 23:15 Alprazolam (Xanax) 0.5 mg PRN Q6HRS PRN PO ANXIETY / AGITATION; Start 01/10/19 at 23:45 Amlodipine Besylate (Norvasc) 10 mg DAILY PO Last administered on 01/14/19at 08:17; Start 01/11/19 at 09:00 Aspirin (Ecotrin) 81 mg DAILYWBKFT PO Last administered on 01/14/19at 08:17; Start 01/11/19 at 08:00 Insulin Human Regular (HumuLIN R VIAL) 100 unit DAILYAC SQ ; Start 01/11/19 at 07:30; Status UNV Tacrolimus (Prograf) 2 mg DAILY16 PO ; Start 01/11/19 at 16:00; Stop 01/11/19 at 16:09; Status DC Tacrolimus (Prograf) 3 mg DAILY05 PO Last administered on 01/11/19at 05:52; Start 01/11/19 at 05:00; Stop 01/11/19 at 06:09; Status DC Non-Formulary Medication (Insulin Detemir (Levemir)) 32 unit HS SQ ; Start 01/11/19 at 21:00; Status UNV Multivitamins (Thera M Plus) 1 tab DAILY PO Last administered on 01/14/19at 08:17; Start 01/11/19 at 09:00 Mycophenolate Mofetil (Cellcept) 500 mg DAILY PO Last administered on 01/14/19at 08:17; Start 01/11/19 at 09:00 Zolpidem Tartrate (Ambien) 5 mg PRN QHS PRN PO INSOMNIA,MRX1 PRN; Start 01/10/19 at 23:45 Insulin Human Lispro (HumaLOG) 0-9 UNITS TIDWMEALS SQ Last administered on 01/14/19at 08:26; Start 01/11/19 at 08:00 Dextrose (Dextrose 50%-Water Syringe) 12.5 gm PRN Q15MIN PRN IV SEE COMMENTS; Start 01/10/19 at 23:45 Insulin Glargine (Lantus Syringe) 32 unit QHS SQ Last administered on 01/12/19at 20:39; Start 01/11/19 at 21:00; Stop 01/13/19 at 08:39; Status DC Tacrolimus (Prograf) 3 mg DAILY08 PO Last administered on 01/12/19at 08:25; Start 01/12/19 at 08:00; Stop 01/12/19 at 10:11; Status DC Piperacillin Sod/ Tazobactam Sod (Zosyn Per Pharmacy) 1 each PRN DAILY PRN MC SEE COMMENTS; Start 01/11/19 at 08:00; Stop 01/11/19 at 09:03; Status DC Piperacillin Sod/ Tazobactam Sod 3.375 gm/Sodium Chloride 50 ml @ 100 mls/hr Q6HRS IV ; Start 01/11/19 at 08:30; Stop 01/11/19 at 09:03; Status DC Piperacillin Sod/ Tazobactam Sod 2.25 gm/Sodium Chloride 50 ml @ 100 mls/hr Q8HRS IV Last administered on 01/12/19at 06:35; Start 01/11/19 at 14:00; Stop 01/12/19 at 09:15; Status DC Sodium Chloride 500 ml @ 500 mls/hr 1X ONCE IV Last administered on 01/11/19at 12:10; Start 01/11/19 at 12:00; Stop 01/11/19 at 12:59; Status DC Tacrolimus (Prograf) 2 mg HS PO Last administered on 01/13/19at 20:52; Start 01/11/19 at 21:00 Acetaminophen (Tylenol) 650 mg PRN Q6HRS PRN PO headache Last administered on at 10:37; Start 01/11/19 at 22:15 Insulin Human Lispro (HumaLOG) 6 units 1X SQ ; Start 01/11/19 at 22:15; Stop 01/11/19 at 22:40; Status DC Fentanyl Citrate (Fentanyl 2ml Vial) 50 mcg PRN Q4HRS PRN IVP PAIN Last administered on 01/13/19 22:17; Start 01/11/19 at 22:30 Polyethylene Glycol (miraLAX PACKET) 17 gm QHS PO Last administered on 01/11/19 22:38; Start 01/11/19 at 22:45 Psyllium Hydrophilic Mucilloid (Metamucil Fiber Packet) 1 pkt QHS PO Last administered on 01/13/19 08:02; Start 01/11/19 at 22:45 Lactulose (Lactulose) 20 gm PRN DAILY PRN PO CONSTIPATION; Start 01/11/19 at 22:30 Insulin Human Lispro (HumaLOG) 6 units 1X ONCE SQ Last administered on 01/11/19at 22:50; Start 01/11/19 at 22:45; Stop 01/11/19 at 22:46; Status DC Ondansetron HCl (Zofran) 4 mg PRN Q6HRS PRN IVP NAUSEA/VOMITING Last administered on 01/12/19at 02:00; Start 01/12/19 at 01:45 Meropenem 500 mg/ Sodium Chloride 50 ml @ 100 mls/hr Q6HRS IV Last administered on 01/14/19 07:10; Start 01/12/19 at 12:00 Oxycodone HCl (Roxicodone) 5 mg PRN Q6HRS PRN PO PAIN Last administered on 01/14/19 08:29; Start 01/12/19 at 10:00 Tacrolimus (Prograf) 2 mg DAILY08 PO Last administered on 01/14/19 08:17; Start 01/12/19 at 10:15 Insulin Human Lispro (HumaLOG) 6 units 1X SQ ; Start 01/12/19 at 20:30; Stop 01/12/19 at 20:41; Status DC Insulin Human Lispro (HumaLOG) 6 units 1X SQ ; Start 01/12/19 at 20:45 Insulin Glargine (Lantus Syringe) 15 unit QHS SQ Last administered on 01/13/19at 20:53; Start 01/13/19 at 21:00 Insulin Glargine (Lantus Syringe) 15 unit DAILYWBKFT SQ Last administered on 01/14/19at 08:44; Start 01/13/19 at 08:45 Magnesium Sulfate 50 ml @ 25 mls/hr 1X ONCE IV ; Start 01/14/19 at 10:00; Stop 01/14/19 at 11:59 Active Scripts Active Reported Multivitamins (Multivitamin) 1 Each Tablet 1 Tab PO DAILY Alprazolam 0.5 Mg Tablet 0.5 Mg PO PRN Q6HRS PRN Humalog (Insulin Lispro) 100 Unit/1 Ml Vial 100 Unit SQ DAILYAC Levemir (Insulin Detemir) 100 Unit/1 Ml Vial 32 Unit SQ HS Amlodipine Besylate 10 Mg Tablet 10 Mg PO DAILY Lo-Dose Aspirin EC (Aspirin) 81 Mg Tablet.dr 81 Mg PO DAILY Zolpidem Tartrate 10 Mg Tablet 10 Mg PO PRN QHS PRN Prograf (Tacrolimus) 1 Mg Capsule 2 Cap PO DAILY16 Prograf (Tacrolimus) 1 Mg Capsule 3 Cap PO DAILY05 Cellcept (Mycophenolate Mofetil) 500 Mg Tablet 500 Mg PO DAILY Vitals/I & O Vital Sign - Last 24 Hours 01/13/19 01/13/19 01/13/19 01/13/19 15:00 19:00 20:00 22:17 Temp 98.3 98.0 98.3 98.0 Pulse 70 78 Resp 18 16 B/P (MAP) 111/65 (80) 115/71 (86) Pulse Ox 95 97 97 O2 Delivery Room Air Room Air Room Air Room Air O2 Flow Rate 91.0 01/13/19 01/13/19 01/14/19 01/14/19 22:37 22:47 03:00 07:00 Temp 98.3 98.5 97.8 98.3 98.5 97.8 Pulse 83 75 74 Resp 18 16 18 B/P (MAP) 133/84 (100) 114/71 (85) 110/72 (85) Pulse Ox 96 96 97 96 O2 Delivery Room Air Room Air Room Air Room Air 01/14/19 01/14/19 08:17 08:29 Pulse 75 Resp 18 B/P (MAP) 114/71 O2 Delivery Room Air Intake and Output 01/13/19 01/13/19 01/14/19 15:00 23:00 07:00 Intake Total 600 ml 700 ml 1050 ml Output Total 800 ml 1300 ml 2100 ml Balance -200 ml -600 ml -1050 ml CLOVER SELBY MD Jan 14, 2019 11:02
--- NOTE | 2019-01-14 11:11 | PDOC ---
G I PROGRESS NOTE Subjective No complaints today. Physical Exam Lungs clear. RRR Abdomen soft, no tender nor distended. Review of Relevant I have reviewed the following items markell (where applicable) has been applied. Labs Laboratory Tests Test 01/12/19 11:52 01/12/19 17:32 01/12/19 20:17 01/13/19 03:40 Glucose (Fingerstick) 238 mg/dL (70-99) 180 mg/dL (70-99) 155 mg/dL (70-99) White Blood Count 6.5 x10^3/uL (4.0-11.0) Red Blood Count 4.98 x10^6/uL (4.30-5.70) Hemoglobin 14.3 g/dL (13.0-17.5) Hematocrit 41.8 % (39.0-53.0) Mean Corpuscular Volume 84 fL (79-100) Mean Corpuscular Hemoglobin 29 pg (25-35) Mean Corpuscular Hemoglobin Concent 34 g/dL (31-37) Red Cell Distribution Width 13.4 % (11.5-14.5) Platelet Count 82 x10^3/uL (140-400) Neutrophils (%) (Auto) 75 % (31-73) Lymphocytes (%) (Auto) 13 % (24-48) Monocytes (%) (Auto) 11 % (0-9) Eosinophils (%) (Auto) 1 % (0-3) Basophils (%) (Auto) 0 % (0-3) Neutrophils # (Auto) 4.9 x10^3/uL (1.8-7.7) Lymphocytes # (Auto) 0.8 x10^3/uL (1.0-4.8) Monocytes # (Auto) 0.7 x10^3/uL (0.0-1.1) Eosinophils # (Auto) 0.0 x10^3/uL (0.0-0.7) Basophils # (Auto) 0.0 x10^3/uL (0.0-0.2) Prothrombin Time 13.1 SEC (11.7-14.0) Prothromb Time International Ratio 1.0 (0.8-1.1) Sodium Level 137 mmol/L (136-145) Potassium Level 3.6 mmol/L (3.5-5.1) Chloride Level 100 mmol/L (98-107) Carbon Dioxide Level 30 mmol/L (21-32) Anion Gap 7 (6-14) Blood Urea Nitrogen 11 mg/dL (8-26) Creatinine 1.3 mg/dL (0.7-1.3) Estimated GFR (Cockcroft-Gault) 68.4 BUN/Creatinine Ratio 8 (6-20) Glucose Level 224 mg/dL (70-99) Calcium Level 9.0 mg/dL (8.5-10.1) Total Bilirubin 1.2 mg/dL (0.2-1.0) Aspartate Amino Transf (AST/SGOT) 75 U/L (15-37) Alanine Aminotransferase (ALT/SGPT) 224 U/L (16-63) Alkaline Phosphatase 94 U/L (46-116) Total Protein 6.4 g/dL (6.4-8.2) Albumin 2.8 g/dL (3.4-5.0) Albumin/Globulin Ratio 0.8 (1.0-1.7) Tacrolimus (Prograf) Level See separate report Test 01/13/19 07:57 01/13/19 11:30 01/13/19 17:31 01/13/19 20:40 Glucose (Fingerstick) 163 mg/dL (70-99) 215 mg/dL (70-99) 199 mg/dL (70-99) 138 mg/dL (70-99) Test 01/14/19 04:50 01/14/19 08:10 Sodium Level 139 mmol/L (136-145) Potassium Level 4.4 mmol/L (3.5-5.1) Chloride Level 103 mmol/L (98-107) Carbon Dioxide Level 28 mmol/L (21-32) Anion Gap 8 (6-14) Blood Urea Nitrogen 15 mg/dL (8-26) Creatinine 1.2 mg/dL (0.7-1.3) Estimated GFR (Cockcroft-Gault) 75.0 Glucose Level 287 mg/dL (70-99) Calcium Level 9.5 mg/dL (8.5-10.1) Magnesium Level 1.5 mg/dL (1.8-2.4) Aspartate Amino Transf (AST/SGOT) 36 U/L (15-37) Alanine Aminotransferase (ALT/SGPT) 153 U/L (16-63) Glucose (Fingerstick) 212 mg/dL (70-99) Laboratory Tests Test 01/13/19 11:30 01/13/19 17:31 01/13/19 20:40 01/14/19 04:50 Glucose (Fingerstick) 215 mg/dL (70-99) 199 mg/dL (70-99) 138 mg/dL (70-99) Sodium Level 139 mmol/L (136-145) Potassium Level 4.4 mmol/L (3.5-5.1) Chloride Level 103 mmol/L (98-107) Carbon Dioxide Level 28 mmol/L (21-32) Anion Gap 8 (6-14) Blood Urea Nitrogen 15 mg/dL (8-26) Creatinine 1.2 mg/dL (0.7-1.3) Estimated GFR (Cockcroft-Gault) 75.0 Glucose Level 287 mg/dL (70-99) Calcium Level 9.5 mg/dL (8.5-10.1) Magnesium Level 1.5 mg/dL (1.8-2.4) Aspartate Amino Transf (AST/SGOT) 36 U/L (15-37) Alanine Aminotransferase (ALT/SGPT) 153 U/L (16-63) Test 01/14/19 08:10 Glucose (Fingerstick) 212 mg/dL (70-99) Microbiology 01/10/19 Urine Culture - Final, Complete 01/10/19 Urine Culture Result 1 (JAMES) - Final, Complete 01/10/19 Blood Culture - Final, Complete Vitals/I & O Vital Sign - Last 24 Hours 01/13/19 01/13/19 01/13/19 01/13/19 15:00 19:00 20:00 22:17 Temp 98.3 98.0 98.3 98.0 Pulse 70 78 Resp 18 16 B/P (MAP) 111/65 (80) 115/71 (86) Pulse Ox 95 97 97 O2 Delivery Room Air Room Air Room Air Room Air O2 Flow Rate 91.0 01/13/19 01/13/19 01/14/19 01/14/19 22:37 22:47 03:00 07:00 Temp 98.3 98.5 97.8 98.3 98.5 97.8 Pulse 83 75 74 Resp 18 16 18 B/P (MAP) 133/84 (100) 114/71 (85) 110/72 (85) Pulse Ox 96 96 97 96 O2 Delivery Room Air Room Air Room Air Room Air 01/14/19 01/14/19 08:17 08:29 Pulse 75 Resp 18 B/P (MAP) 114/71 O2 Delivery Room Air Intake and Output 01/13/19 01/13/19 01/14/19 15:00 23:00 07:00 Intake Total 600 ml 700 ml 1050 ml Output Total 800 ml 1300 ml 2100 ml Balance -200 ml -600 ml -1050 ml Problem List Problems Medical Problems: (1) Abdominal pain Status: Acute (2) MARK (acute kidney injury) Status: Acute (3) Hyperglycemia due to type 2 diabetes mellitus Status: Acute (4) Lactic acid acidosis Status: Acute (5) Renal insufficiency Status: Acute (6) Severe sepsis Status: Acute Assessment Suspect cholangitis, improving on treatment. 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 Plan of Care: Continue current Tx, Mgmt Plan of Care Note Urged him to f/u with his community education specialist soonest re: further investigation. SHILPA CHRIS MD Jan 14, 2019 11:11
[2019-01-14] MEDS ORDERED: cefTRIAXone IV Push 2 GM VIAL. IVP SCH (13:00)
[2019-01-14] MEDS ORDERED: CIPR500T94 PO (13:06)
[2019-01-14 15:00] VITALS: BP 112/63
--- NOTE | 2019-01-14 16:45 | NUR ---
Discharged patient to home. Patient is flying back to [place] this evening. Instructions given and patient verbalized understanding. PIV and heart monitor removed. Escorted patient off unit per wheelchair into a [employer] vehicle.
[2019-01-14] MEDS ORDERED: TACROLIMUS 0.5 MG CAPSULE PO ONE (21:00)
[2019-01-15] MEDS ORDERED: TACROLIMUS 0.5 MG CAPSULE PO SCH (21:00)
== END 2019-01-14 16:45 | disposition home or self-care (01) | DRG 871 ==
LOC: ER 15:54 → 2 SOUTH 19:46
PROVIDERS: ADMIT Internal Medicine; ATTEND Internal Medicine
DX: A41.50 Gram-negative sepsis, unspecified (principal); N17.0 Acute kidney failure with tubular necrosis; K51.90 Ulcerative colitis, unspecified, without complications; Z94.4 Liver transplant status; E11.65 Type 2 diabetes mellitus with hyperglycemia; I95.9 Hypotension, unspecified; I10 Essential (primary) hypertension; D69.6 Thrombocytopenia, unspecified; E78.5 Hyperlipidemia, unspecified; Z90.49 Acquired absence of other specified parts of digestive tract; Z83.3 Family history of diabetes mellitus; Z88.2 Allergy status to sulfonamides; F41.9 Anxiety disorder, unspecified; Z79.899 Other long term (current) drug therapy
CPT/HCPCS: 36415; 71045; 71250; 74176; 80048; 80053; 80197; 81001; 82550; 82570; 82962; 83605; 83690; 83735; 84156; 84450; 84460; 84484; 85007; 85025; 85610; 87040; 87077; 87086; 87205; 93005; 96361; 96365; 96368; 96375; J0696; J1815; J2185; J2405; J2543; J3010; J3370; J3475; J7030; J7040; J7507; J7517; 99285-25; G0378